=== PATIENT | male | born 2000 | race African-American/Black ===

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

== ENCOUNTER 2020-02-03 15:20 | Inpatient (IN) | payer MEDICAID, OTHER ==
[2020-02-03 15:26] VITALS: RESP 18
--- NOTE | 2020-02-03 15:40 | ED ---
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 please excuse any grammatical, word or spelling errors. This patient was cared for during a federal and state declared state of emergency secondary to Covid 19 Chief Complaint: 19-year-old male presents for psychiatric evaluation for coronary History of Present Illness: Patient is a 19-year-old male who is brought in by law enforcement. There is a court order for the patient. Patient does not know why he is here. He was unhappy of being here in emergency department. Law enforcement reports that he was kind of an cooperative. Court order was completed by patient's grandmother. She reports that patient has history of bipolar schizophrenia not taking his medications. He was admitted to [facility] approximately one month ago. Denies any suicidal or homicidal ideation. No visual auditory hallucinations. Patient has no complaints at this time. The ROS documented in this emergency department record has been reviewed and confirmed by me. Those systems with pertinent positive or negative responses have been documented in the HPI. All other systems are other negative and/or noncontributory. PHYSICAL EXAM: General Impression: Alert and oriented x3, not in acute distress HEENT: Normocephalic atraumatic, extra-ocular movements intact, pupils equal and reactive to light bilaterally, mucous membranes moist. Cardiovascular: Heart regular rate and rhythm Chest: Able to complete full sentences, no retractions, no tachypnea Abdomen: abdomen soft, non-tender, non-distended, no organomegaly Musculoskeletal: Pulses present and equal in all extremities, no peripheral edema Motor: no focal deficits noted Neurological: CN II-XII grossly intact, no focal motor or sensory deficits noted Skin: Intact with no visualized rashes Psych: Normal affect and mood ED course: 19-year-old male presents with law enforcement for court order. Vital signs upon arrival are within acceptable limits. Patient is well- appearing at bedside. Patient is cooperative with me. He is not showing any signs of psychosis. Patient medically cleared for EPS evaluation. Patient was evaluated by EPS. Patient will be admitted to inpatient psychiatry. Certification completed. - Related Data Home Medications Medication Instructions Recorded Confirmed No Known Home Medications 06/02/16 11/17/18 Allergies Allergy/AdvReac Type Severity Reaction Status Date / Time No Known Allergies Allergy Verified 02/03/20 15:26 Review of Systems ROS Statement: Those systems with pertinent positive or pertinent negative responses have been documented in the HPI. ROS Other: All systems not noted in ROS Statement are negative. Past Medical History Past Medical History: Thyroid Disorder Additional Past Medical History / Comment(s): L thyroid nodule <1 CM, ? parathyroid problem History of Any Multi-Drug Resistant Organisms: None Reported Past Surgical History: No Surgical Hx Reported Past Anesthesia/Blood Transfusion Reactions: Unable to Obtain Additional Past Anesthesia/Blood Transfusion Reaction / Comment(s): Pt has never had surgery Past Psychological History: ADD/ADHD Smoking Status: Current every day smoker Past Alcohol Use History: Occasional Past Drug Use History: Marijuana - Past Family History Mother Additional Family Medical History / Comment(s): ADHD Father Family Medical History: No Reported History Additional Family Medical History / Comment(s): Father is healthy grandfather Family Medical History: Diabetes Mellitus General Exam Limitations: no limitations Course Vital Signs 02/03/20 15:21 Temperature 98.4 F Pulse Rate 79 Respiratory 18 Rate Blood Pressure 132/72 O2 Sat by Pulse 97 Oximetry Disposition Clinical Impression: Psychosis Disposition: ADMITTED IP TO THIS HOSP Referrals: None,Stated [Primary Care Provider] - 1-2 days Decision Time: 18:59
[2020-02-03 19:07] LABS: Amphetamine Screen,Urine Not Detected (NotDetected); Barbiturate Screen,Urine Not Detected (NotDetected); Benzodiazepines Screen,Urine Not Detected (NotDetected); Cocaine Screen,Urine Not Detected (NotDetected); Methadone Screen, Urine Not Detected (NotDetected); Opiate Screen,Urine Not Detected (NotDetected); Oxycodone Screen, Urine Not Detected (NotDetected); Phencyclidine Screen,Urine Not Detected (NotDetected); Tricyclic Antidepressant,Urine Not Detected (NotDetected); Urn Cannabinoid Scrn Detected (NotDetected)
[2020-02-03] MEDS ORDERED: ACETAMINOPHEN TAB 325 MG TAB PO PRN (20:13)
[2020-02-03] MEDS ORDERED: MAG HYDROX/AL HYDROX/SIMETH 30 ML CUP PO PRN (20:13)
[2020-02-03] MEDS ORDERED: MAGNESIUM HYDROXIDE 2,400 MG/10 ML CUP PO PRN (20:13)
[2020-02-03] MEDS ORDERED: LORazepam 1 MG TAB PO PRN (20:13)
[2020-02-03] MEDS ORDERED: HALOPERIDOL LACTATE 5 MG/ML 1 ML VIAL IM PRN (20:18)
[2020-02-03] MEDS ORDERED: LORazepam 2 MG/ML INJ IM PRN (20:18)
[2020-02-03] MEDS ORDERED: haloperidoL 5 MG TAB PO PRN (20:18)
[2020-02-04] MEDS: NICOTINE 14MG/24HR PATCH TRANSDERM SCH ×2 (09:24→12:26)
[2020-02-04 13:11] LABS: Basophils % (A) 1 %; Eosinophils % (A) 0 %; HCT 46.4 % (39.0-53.0); HGB 15.4 gm/dL (13.0-17.5); Lymphocytes # (A) 1.2 k/uL (1.0-4.8); Lymphocytes % (A) 20 %; MCH 29.9 pg (25.0-35.0); MCHC 33.2 g/dL (31.0-37.0); MCV 90.1 fL (80.0-100.0); Mean Platelet Volume 7.1; Monocytes # (A) 0.3 k/uL (0-1.0); Monocytes % (A) 4 %; Neutrophils # (A) 4.4 k/uL (1.3-7.7); Neutrophils % (A) 74 %; Platelet Count 253 k/uL (150-450); RBC 5.15 m/uL (4.30-5.90); RDW 13.1 % (11.5-15.5)
[2020-02-04 13:20] LABS: ALT 16 U/L (4-49); AST 23 U/L (17-59); African American GFR (CKD) >90 (>60 ml/min/1.73 sqM); Albumin 4.4 g/dL (3.5-5.0); Alkaline Phosphatase 74 U/L (38-126); Anion Gap 3 mmol/L; Bilirubin, Delta 0.2 mg/dL (0.0-0.2); Bilirubin,Unconjugated 0.3 mg/dL (0.0-1.1); Blood Urea Nitrogen 8 mg/dL (9-20); Calcium 9.6 mg/dL (8.4-10.2); Carbon Dioxide 31 mmol/L (22-30); Chloride 104 mmol/L (98-107); Cholesterol 116 mg/dL (<200); Glucose 103 mg/dL (74-99); HDL Cholesterol 40 mg/dL (40-60); LDL Cholesterol,Calculated 61 mg/dL (0-99); Non-African American GFR(CKD) >90 (>60 ml/min/1.73 sqM); Sodium 138 mmol/L (137-145); Total Bilirubin 0.5 mg/dL (0.2-1.3); Total Protein 7.2 g/dL (6.3-8.2); Triglycerides 74 mg/dL (<150)
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
[2020-02-04] MEDS: PALIPERIDONE 3 MG TAB.ER.24 PO SCH ×2 (15:32→21:29)
[2020-02-05] MEDS: MELATONIN 5 MG TABLET PO PRN ×2 (00:02→20:34)
--- NOTE | 2020-02-05 01:04 | P.CONS ---
History of Present Illness - Reason for Consult Consult date: 02/05/20 - History of Present Illness Patient is a 19-year-old male with a PMH of bipolar disorder, tobacco abuse, marijuana abuse who was brought into the emergency room under police custody after a pickup order. The patient was admitted to the mental health unit where he was seen and evaluated on 02/03 at 10 PM. The patient reported feeling well and denied active complaints. He reported smoking a few cigarettes daily and us ing marijuana on though denied any additional drug use. He also denied alcohol he use. He denied chest pain, shortness of breath, fever, chills, cough, nausea, vomiting, abdominal pain, diarrhea. Review of Systems Pertinent positives and negatives as discussed in HPI, a complete review of systems was performed and all other systems are negative. Past Medical History Past Medical History: Thyroid Disorder Additional Past Medical History / Comment(s): L thyroid nodule <1 CM, ? parathyroid problem History of Any Multi-Drug Resistant Organisms: None Reported Past Surgical History: No Surgical Hx Reported Past Anesthesia/Blood Transfusion Reactions: No Reported Reaction Additional Past Anesthesia/Blood Transfusion Reaction / Comm: Pt has never had surgery Past Psychological History: ADD/ADHD Additional Psychological History / Comment(s): Pt resides with his grandmother. He is attending [employer]. He does not drive. Grandmother calls [employer] and arranges rides. Smoking Status: Current some day smoker Past Alcohol Use History: Occasional Additional Past Alcohol Use History / Comment(s): Pt states he smokes and drinks alcohol occasionally. Past Drug Use History: Marijuana Additional Drug Use History / Comment(s): Pt states he smokes marijuana in a bong daily - Past Family History Mother Additional Family Medical History / Comment(s): ADHD Father Family Medical History: No Reported History Additional Family Medical History / Comment(s): Father is healthy grandfather Family Medical History: Diabetes Mellitus Medications and Allergies Home Medications Medication Instructions Recorded Confirmed Type No Known Home Medications 06/02/16 02/03/20 History Allergies Allergy/AdvReac Type Severity Reaction Status Date / Time No Known Allergies Allergy Verified 02/03/20 19:13 Physical Exam Vitals: Vital Signs Temp 02/04/20 18:10 97.5 F L 02/04/20 12:00 98.2 F Intake and Output 02/04/20 02/04/20 02/05/20 14:59 22:59 06:59 Other: Weight 95.98 kg 94.6 kg General: non toxic, no distress, appears at stated age Derm: no unusual rashes/lesions no unusual ecchymoses, warm, dry Head: atraumatic, normocephalic, symmetric Eyes: EOMI, no lid lag, anicteric sclera, pupils equal round reactive to light ENT: Nose and ears atraumatic, no thrush, no pharyngeal erythema Neck: No thyromegaly, no cervical lymphadenopathy, trachea midline, supple Mouth: no lip lesion, mucus membranes moist Cardiovascular: S1S2 reg, no murmur, positive posterior tibial pulse bilateral, no edema, capillary refill less than 2 seconds Lungs: CTA bilateral, no rhonchi, no rales , no accessory muscle use Abdominal: soft, nontender to palpation, no guarding, no appreciable organomegaly, normal bowel sounds Ext: no gross muscle atrophy, muscle strength 5 out of 5 in all 4 extremities grossly, no contractures, Neuro: CN II-XI grossly intact, light touch intact all 4 extremities, finger to nose within normal limits, Psych: Alert, oriented, appropriate affect Results CBC & Chem 7: 02/04/20 12:27 02/04/20 12:27 Labs: Abnormal Lab Results - Last 24 Hours (Table) 02/04/20 Range/Units 12: Carbon Dioxide 31 H (22-30) mmol/L BUN 8 L (9-20) mg/dL Glucose 103 H (74-99) mg/dL Assessment and Plan Plan: Tobacco and marijuana abuse -Advised on the importance of cessation Bipolar disorder -As per psychiatry Thank you for allowing us to participate in the care of this patient. We will follow peripherally. Do not hesitate to contact us with questions. Someone can be reached from the [facility] hospitalist group at all hours of the day at [phone].
[2020-02-05] MEDS: NICOTINE 14MG/24HR PATCH TRANSDERM SCH (07:57)
[2020-02-05] MEDS: PALIPERIDONE 3 MG TAB.ER.24 PO SCH ×2 (07:57→20:33)
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
[2020-02-06 07:17] VITALS: BP 113/60; PULSE 69; TEMP 97.4
[2020-02-06] MEDS: NICOTINE 14MG/24HR PATCH TRANSDERM SCH (08:34)
[2020-02-06] MEDS: PALIPERIDONE 3 MG TAB.ER.24 PO SCH (08:34)
[2020-02-06] MEDS ORDERED: PALIPERIDONE IM 234 MG/1.5 ML SYG IM ONE (09:00)
--- NOTE | 2020-02-06 10:01 | P.DS ---
Providers Date of admission: 02/03/20 20:13 Expected date of discharge: 02/06/20 Attending physician: Remington Garcia MD Consults: 02/03/20 20:13 Consult Physician Routine Consulting Provider: Sena Physician Consult Reason/Comments: Medical H and P Do you want consulting provider notified?: Yes Primary care physician: Stated None - Discharge Diagnosis(es) (1) Schizoaffective disorder Current Visit: Yes Status: Acute Priority: High (2) Cannabis abuse Current Visit: Yes Status: Acute Priority: Medium (3) Nicotine dependence Current Visit: Yes Status: Acute Priority: Low Hospital Course: Admission HPI: Admission note was completed by Dr. King "the patient is a 19-year-old male who resides with his grandmother and was admitted on petition through the ED. The patient was delusional he was up all night night after night talking to himself and talking to the TV. She makes statements about that he will within the next couple of weeks. The patient was not able to provide any reliable information. Information was provided by his grandmother. He has been living with his grandmother. His grandmother completed a petition for involuntary hospitalization. The patient has had 1 prior psychiatric hospitalization at [facility]. The patient did indicate that he was prescribed Risperdal, a mood stabilizer and a sleeper. After discharge the patient did not take any medications nor go to any follow-up. He had been referred to community mental health. Grandmother indicated that while he was in the hospital he apparently received some IM medications though she did not know any more details. After the patient got out of the hospital, mostly he has been living with his grandmother though he also was visiting family from time to time down [place] according to his grandmother. The brother would note that when the patient would visit there she would be up all night smoking marijuana and drinking. He told grandmother that the family was in a hurry to get him back to [place] because they could not tolerate his behavior. Grandmother notes that he stays up all night, night after night. She will hear him laughing and talking to himself as well as talking to the television. He makes comments about killing people who are . He makes statements that he is the devil and he talks to someone who is dad saying "I will join you soon". He refused all outpatient treatment. He made comments that a friend and the friend's grandmother are out to kill him. He also told his grandmother that he wanted a pistol so that he could kill himself. Apparently mother and a sister have bipolar disorder and schizophrenia. According to grandmother essentially father and mother pretty much had abandoned him in his growing up. He has had some court orders through [employer]. He ended up in high school, going to a boy's school in [place] for 1 year because of juvenile behavioral issues. As a teenager the patient had been on Concerta and Latuda. The patient stated that recently his father called police. His father lives in [place]. Father reported him to police because apparently there is a warrant for assault charges from the May incident. The patient spent 10 days in [facility] half-way and just got released from half-way on Wednesday. Urine drug screen is positive for marijuana. The patient is admitted for further evaluation." Hospital course: Upon admission to the unit patient was initially bizarre psychotic and delusional. Patient was however admitted on a petition by his grandmother and to clinical certificates which were filed for involuntary hospitalization and treatment. Patient ended up deferring court on 02/06/2020 with his united [place] attorney and agreeing to treatment. Patient got along well with other patients on the unit and followed unit protocol. Patient was compliant with the medications and denied any side effects throughout hospital course. Patient was started on paliperidone by mouth 3 mg twice a day for psychosis. Patient was agreeable to be transitioned onto Invega Sustenna and given loading dose of 234 mg IM on 02/06/2020 and will be due for his next dose on 02/14/2020 of 156 mg and will be due for his maintenance injection of 117 mg on . Patient was also started on melatonin daily at bedtime for sleep. Patient spoke of his stressors and engaged in therapy both group and individual. Patient was also seen by medical team for history and physical exam. Throughout the course of the hospitalization patient gradually improved with regards to mood, psychosis/delusions, paranoia, sleep and became more future oriented with improved insight and judgment. On the day of discharge patient denied any suicidal or homicidal ideations intent or plan denied any auditory or visual hallucinations. Patient endorsed wanting to live for his health and family. Patient denied any paranoia and did not endorse any delusions. Patient does have a significant history of substance abuse and was counseled on abstaining from all substances including alcohol and marijuana. Patient was offered however declined inpatient substance-abuse rehab. Patient was also counseled on the medications and need for regular compliance and was encouraged to follow-up with their outpatient appointment for mental health and also for primary care. Prior to discharge a family meeting with patient's grandmother will be arranged by drug abuse social worker to answer any questions and ensure safety upon discharge. Patient will be discharged back to his grandmother's house with [facility] outpatient follow- up. Mental status exam: General Appearance: Patient appears to be well-built, stated age is alert, directable, and cooperative. Patient is in no acute distress and has improved hygiene and grooming. long dreads in his hair. Behavior: Patient is calmly seated without any agitated behavior. Speech: Patient's speech is fluent and nonpressured. Mood/Affect: Patient reports their mood is "good", affect is congruent Suicidality/Homicidality: Patient denies having any suicidal or homicidal ideation intent or plan. Perceptions: Patient denies any auditory or visual hallucinations. Though content/process: There is no evidence of any delusional thought content and thought process is linear and goal-directed. more future oriented and speaking about getting a job. Memory and concentration: AOX3, grossly intact for the purposes of this session. Can spell "WORLD" backwards correctly. Judgment and insight: improved with guarded prognosis Impression: Schizoaffective disorder r/o bipolar disorder with psychotic features versus cannabis-induced psychosis Cannabis abuse Nicotine dependence Plan: -Continue with discharge today as patient has improved and stabilized psychiatrically and is not currently an imminent threat to himself and/or others. Patient will remain at chronically elevated risk for harm to self and/or others due to his superficial insight and chronic substance abuse. -Continue medications: Continue with paliperidone 3 mg daily at bedtime for 5 more days then to be discontinued. Patient was given loading dose of 234 mg IM on 02/06/2020 and will be due for his next dose on 02/14/2020 of 156 mg and will be due for his maintenance injection of 117 mg on . Continue with melatonin daily at bedtime for insomnia. -Patient was counseled on the need for medication compliance and appropriate follow-up at mental health and also primary care for medical issues. Patient verbalized understanding and agreed. -Social work to arrange for and conduct family meeting to ensure safety upon discharge and answer any questions/concerns. Social work also to arrange for patients follow up appointments with [facility] for psychiatric care along with follow up with primary care provider. -Patient counseled on abstaining from recreational drugs and marijuana and alcohol. Was informed/educated on the adverse effects on their physical and mental health. Patient verbally agreed and understood. Patient was offered substance abuse treatment however declined at this time. -Patient was instructed to return to the hospital or seek immediate medical care if their psychiatric or medical symptoms do worsen or reoccur. Allergies Allergy/AdvReac Type Severity Reaction Status Date / Time No Known Allergies Allergy Verified 02/03/20 19:13 Laboratory Results WBC 6.0 k/uL (4.0-11.0) 02/04/20 12: RBC 5.15 m/uL (4.30-5.90) 02/04/20 12: Hgb 15.4 gm/dL (13.0-17.5) 02/04/20 12:27 Hct 46.4 % (39.0-53.0) 02/04/20 12: MCV 90.1 fL (80.0-100.0) 02/04/20 12:27 MCH 29.9 pg (25.0-35.0) 02/04/20 12: MCHC 33.2 g/dL (31.0-37.0) 02/04/20 12: RDW 13.1 % (11.5-15.5) 02/04/20 12: Plt Count 253 k/uL (150-450) 02/04/20 12: MPV 7.1 02/04/20 12: Neutrophils % 74 % 02/04/20 12: Lymphocytes % 20 % 02/04/20 12:27 Monocytes % 4 % 02/04/20 12:27 Eosinophils % 0 % 02/04/20 12:27 Basophils % 1 % 02/04/20 12: Neutrophils # 4.4 k/uL (1.3-7.7) 02/04/20 12: Lymphocytes # 1.2 k/uL (1.0-4.8) 02/04/20 12:27 Monocytes # 0.3 k/uL (0-1.0) 02/04/20 12:27 Eosinophils # 0.0 k/uL (0-0.7) 02/04/20 12:27 Basophils # 0.0 k/uL (0-0.2) 02/04/20 12:27 Sodium 138 mmol/L (137-145) 02/04/20 12:27 Potassium 5.0 mmol/L (3.5-5.1) 02/04/20 12:27 Chloride 104 mmol/L (98-107) 02/04/20 12: Carbon Dioxide 31 mmol/L (22-30) H 02/04/20 12: Anion Gap 3 mmol/L 02/04/20 12: BUN 8 mg/dL (9-20) L 02/04/20 12: Creatinine 1.10 mg/dL (0.66-1.25) 02/04/20 12:27 Est GFR (CKD-EPI)AfAm >90 (>60 ml/min/1.73 sqM) 02/04/20 12: Est GFR (CKD-EPI)NonAf >90 (>60 ml/min/1.73 sqM) 02/04/20 12: Glucose 103 mg/dL (74-99) H 02/04/20 12: Estimated Ave Glu mg/dL 97 02/04/20 12: Hemoglobin A1c 5.0 % (4.0-6.0) 02/04/20 12: Calcium 9.6 mg/dL (8.4-10.2) 02/04/20 12: Total Bilirubin 0.5 mg/dL (0.2-1.3) 02/04/20 12: Conjugated Bilirubin 0.0 mg/dL (0.0-0.3) 02/04/20 12: Unconjugated Bilirubin 0.3 mg/dL (0.0-1.1) 02/04/20 12: Delta Bilirubin 0.2 mg/dL (0.0-0.2) 02/04/20 12: AST 23 U/L (17-59) 02/04/20 12: ALT 16 U/L (4-49) 02/04/20 12:27 Alkaline Phosphatase 74 U/L (38-126) 02/04/20 12:27 Total Protein 7.2 g/dL (6.3-8.2) 02/04/20 12:27 Albumin 4.4 g/dL (3.5-5.0) 02/04/20 12:27 Triglycerides 74 mg/dL (<150) 02/04/20 12:27 Cholesterol 116 mg/dL (<200) 02/04/20 12:27 LDL Cholesterol, Calc 61 mg/dL (0-99) 02/04/20 12:27 HDL Cholesterol 40 mg/dL (40-60) 02/04/20 12:27 TSH 0.769 mIU/L (0.465-4.680) 02/04/20 12:27 Urine Opiates Screen Not Detected (NotDetected) 02/03/20 18:44 Ur Oxycodone Screen Not Detected (NotDetected) 02/03/20 18:44 Urine Methadone Screen Not Detected (NotDetected) 02/03/20 18:44 Ur Propoxyphene Screen Not Detected (NotDetected) 02/03/20 18:44 Ur Barbiturates Screen Not Detected (NotDetected) 02/03/20 18:44 U Tricyclic Antidepress Not Detected (NotDetected) 02/03/20 18:44 Ur Phencyclidine Scrn Not Detected (NotDetected) 02/03/20 18:44 Ur Amphetamines Screen Not Detected (NotDetected) 02/03/20 18:44 U Methamphetamines Scrn Not Detected (NotDetected) 02/03/20 18:44 U Benzodiazepines Scrn Not Detected (NotDetected) 02/03/20 18:44 Urine Cocaine Screen Not Detected (NotDetected) 02/03/20 18:44 U Marijuana (THC) Screen Detected (NotDetected) H 02/03/20 18:44 Coronavirus (PCR) Not Detected (Not Detectd) 02/03/20 18:25 Vital Signs Temp 97.4 F L 02/06/20 07:16 Pulse 69 02/06/20 07:16 Resp 18 02/03/20 20:20 BP 113/60 02/06/20 07:16 Pulse Ox 97 02/03/20 20:20 Patient Condition at Discharge: Stable Plan - Discharge Summary Discharge Rx Participant: No New Discharge Prescriptions: New Nicotine 14Mg/24Hr Patch [Habitrol] 1 patch TRANSDERM DAILY 14 Days patch Paliperidone [Invega] 3 mg PO HS 5 Days tab.er.24 Paliperidone IM [Invega Sustenna] 156 mg IM ONCE #1 syr Paliperidone Palmitate [Invega Sustenna] 117 mg IM ONCE #1 syr Melatonin 5 mg PO HS PRN 30 Days tablet PRN Reason: Insomnia Acetaminophen Tab [Tylenol] 650 mg PO Q4HR PRN #0 tab PRN Reason: Pain/Discomfort Discharge Medication List Acetaminophen Tab [Tylenol] 650 mg PO Q4HR PRN #0 tab 02/06/20 [Rx] Melatonin 5 mg PO HS PRN 30 Days tablet 02/06/20 [Rx] Nicotine 14Mg/24Hr Patch [Habitrol] 1 patch TRANSDERM DAILY 14 Days patch 02/06/20 [Rx] Paliperidone IM [Invega Sustenna] 156 mg IM ONCE #1 syr 02/06/20 [Rx] Paliperidone Palmitate [Invega Sustenna] 117 mg IM ONCE #1 syr 02/06/20 [Rx] Paliperidone [Invega] 3 mg PO HS 5 Days tab.er.24 02/06/20 [Rx] Follow up Appointment(s)/Referral(s): None,Stated [Primary Care Provider] - 1-2 days Activity/Diet/Wound Care/Special Instructions: Activity and diet as tolerated. Avoid the use of street drugs and alcohol. Take all medications as prescribed. When you are in need of refills on your medications please contact your medical provider and/or outpatient psychiatrist to have this done. Please go to scheduled outpatient appointment for aftercare treatment. If symptoms return or become worse, call the crisis line at and/or go to the nearest emergency room for evaluation. Discharge Disposition: HOME SELF-CARE
[2020-02-06] MEDS ORDERED: PALIPERIDONE 3 MG TAB.ER.24 PO SCH (21:00)
== END 2020-02-06 12:20 | disposition home or self-care (01) | DRG 885 ==
LOC: EC 15:20 → 3MHU 20:13
PROVIDERS: ADMIT Psychiatry & Neurology Psychiatry; ATTEND Psychiatry & Neurology Psychiatry
DX: F25.9 Schizoaffective disorder, unspecified (principal); F12.10 Cannabis abuse, uncomplicated; F17.200 Nicotine dependence, unspecified, uncomplicated; F31.9 Bipolar disorder, unspecified; Z20.828 Contact with and (suspected) exposure to other viral communicable diseases; G47.00 Insomnia, unspecified; F90.9 Attention-deficit hyperactivity disorder, unspecified type; Z81.8 Family history of other mental and behavioral disorders; Z83.3 Family history of diabetes mellitus; Z91.14 Patient's other noncompliance with medication regimen
CPT/HCPCS: 80053; 80061; 80306; 82075; 82248; 83036; 84443; 85025; 87635; 99285

== ENCOUNTER 2020-12-14 00:52 | Inpatient (IN) | payer MEDICAID, OTHER ==
--- NOTE | 2020-12-14 00:56 | ED ---
Psych HPI - General Stated Complaint: Mental Health Time Seen by Provider: 12/14/20 00:55 Source: RN notes reviewed, old records reviewed Mode of arrival: ambulatory Limitations: no limitations - History of Present Illness Initial Comments: This is a 20-year-old male to the ER for evaluation today. Presents today for evaluation regards to a Sick illness. Patient does not want really participating history taking. He has multiple bad as needed inpatient both [facility] or other hospitals. Denying drugs or alcohol use. MD Complaint: suicidal ideation, feels depressed -: unknown Associated Psychiatric Symptoms: depression, suicidal ideation, racing thoughts History of same: Yes Quality: constant, getting worse Improves With: none Worsens With: none Context: significant life stressor Associated Symptoms: denies other symptoms Treatments Prior to Arrival: placed on mental health hold If Self Harm: admits thoughts of self harm - Related Data Previous Rx's Medication Instructions Recorded Acetaminophen Tab [Tylenol] 650 mg PO Q4HR PRN #0 tab 02/06/20 Melatonin 5 mg PO HS PRN 30 Days tablet 02/06/20 Nicotine 14Mg/24Hr Patch [Habitrol] 1 patch TRANSDERM DAILY 14 Days 02/06/20 patch Paliperidone IM [Invega Sustenna] 156 mg IM ONCE #1 syr 02/06/20 Paliperidone Palmitate [Invega 117 mg IM ONCE #1 syr 02/06/20 Sustenna] Paliperidone [Invega] 3 mg PO HS 5 Days tab.er.24 02/06/20 Allergies Allergy/AdvReac Type Severity Reaction Status Date / Time No Known Allergies Allergy Verified 02/03/20 19:13 Review of Systems ROS Statement: Those systems with pertinent positive or pertinent negative responses have been documented in the HPI. ROS Other: All systems not noted in ROS Statement are negative. Past Medical History Past Medical History: Thyroid Disorder Additional Past Medical History / Comment(s): L thyroid nodule <1 CM, ? parathyroid problem History of Any Multi-Drug Resistant Organisms: None Reported Past Surgical History: No Surgical Hx Reported Past Anesthesia/Blood Transfusion Reactions: No Reported Reaction Additional Past Anesthesia/Blood Transfusion Reaction / Comment(s): Pt has never had surgery Past Psychological History: ADD/ADHD Additional Psychological History / Comment(s): Pt resides with his grandmother. He is attending [employer]. He does not drive. Grandmother calls [employer] and arranges rides. Smoking Status: Current some day smoker Past Alcohol Use History: Occasional Additional Past Alcohol Use History / Comment(s): Pt states he smokes and drinks alcohol occasionally. Past Drug Use History: Marijuana Additional Drug Use History / Comment(s): Pt states he smokes marijuana in a bong daily - Past Family History Mother Additional Family Medical History / Comment(s): ADHD Father Family Medical History: No Reported History Additional Family Medical History / Comment(s): Father is healthy grandfather Family Medical History: Diabetes Mellitus General Exam General appearance: alert, in no apparent distress Head exam: Present: atraumatic, normocephalic, normal inspection Eye exam: Present: normal appearance, PERRL, EOMI. Absent: scleral icterus, conjunctival injection, periorbital swelling ENT exam: Present: normal exam, mucous membranes moist Neck exam: Present: normal inspection. Absent: tenderness, meningismus, lymphadenopathy Respiratory exam: Present: normal lung sounds bilaterally. Absent: respiratory distress, wheezes, rales, rhonchi, stridor Cardiovascular Exam: Present: regular rate, normal rhythm, normal heart sounds. Absent: systolic murmur, diastolic murmur, rubs, gallop, clicks GI/Abdominal exam: Present: soft, normal bowel sounds. Absent: distended, tenderness, guarding, rebound, rigid Extremities exam: Present: normal inspection, full ROM, normal capillary refill. Absent: tenderness, pedal edema, joint swelling, calf tenderness Back exam: Present: normal inspection Neurological exam: Present: alert, oriented X3, CN II-XII intact Psychiatric exam: Present: normal affect, normal mood Skin exam: Present: warm, dry, intact, normal color. Absent: rash Course Vital Signs 12/14/20 01:04 Temperature 99.5 F Pulse Rate 109 H Respiratory 16 Rate Blood Pressure 117/67 O2 Sat by Pulse 96 Oximetry - Reevaluation(s) Reevaluation #1: 12/14/20 02:27 Medical record is reviewed 12/14/20 02:27 Medical clear for psychiatric evaluation Medical Decision Making - Medical Decision Making 20 male seen and evaluated by psychiatry, patient be admitted for psychiatric evaluation and treatment Disposition Clinical Impression: Psychosis, Schizoaffective disorder Disposition: TRANSFER TO PSYCH HOSP/UNIT Condition: Fair Referrals: Sydni Schuler MD [Primary Care Provider] - 1-2 days
[2020-12-14] MEDS ORDERED: ACETAMINOPHEN TAB 325 MG TAB PO PRN (04:46)
[2020-12-14] MEDS ORDERED: MAG HYDROX/AL HYDROX/SIMETH 30 ML CUP PO PRN (08:00)
[2020-12-14] MEDS ORDERED: MAGNESIUM HYDROXIDE 2,400 MG/10 ML CUP PO PRN (09:00)
[2020-12-14] MEDS: NICOTINE 14MG/24HR PATCH TRANSDERM SCH (10:27)
[2020-12-14] MEDS ORDERED: PALIPERIDONE IM 234 MG/1.5 ML SYG IM STA (14:45)
--- NOTE | 2020-12-14 18:20 | HP ---
DATE OF SERVICE: 12/14/2020 HISTORY AND PHYSICAL IDENTIFYING DATA: The patient is a 20-year-old male. He lives with his grandmother. He presented to the ED for evaluation. CHIEF COMPLAINT: The patient was delusional and disorganized in his thoughts. HISTORY OF PRESENTING ILLNESS: The patient was the primary source of information. He was not able to provide any reliable information during the interview. It is noteworthy that I had previously seen the patient and did an admission H and P on 02/04/2020. At that time he presented with delusions, had been living with his grandmother, as he says he is now. He apparently was getting into agitation. He was declining to go to [facility]. He was quite disorganized in his thoughts. He had been staying up at night smoking marijuana and drinking. Apparently he would be found to be laughing to himself, talking to himself and talking to the television. He was making statements about killing people who were . He talked about telling his grandmother he wanted a pistol so that he could kill himself. Today he made some vague comment about thinking that he would kill people, and when I asked him specifics about that, he said he thinks that he would kill the whole town. He did not say what town that was. He then made comments about how no one would understand what he has been going through. He was not able to elaborate. He was very disorganized in his thoughts and was not able to provide any information about his current circumstances. He did make comments that he had been going to [facility] and that he was on Invega Sustenna. He believed his last dose of Invega Sustenna was in August. He was willing to go back on Invega Sustenna. He is admitted for further evaluation. SUBSTANCE USE HISTORY: Uncertain. PAST MEDICAL HISTORY: No reported general health concerns. FAMILY AND SOCIAL HISTORY: I have no current information available. I would refer the reader to my admission note of 02/04/2020 for details. MENTAL STATUS EXAM: The patient sat in a slumped posture. Mostly he looked down and did not establish any eye contact. He made various odd statements. Sometimes he would talk to himself in a very soft voice. It was difficult to follow his train of thought. Some of the time he would laugh and start talking in a somewhat rapid though mumbled way, so it was hard to know what he was saying. He made various disconnected statements. His affect was mildly intense. He was cooperative. His mood fluctuated, though he did not appear to be significantly down or depressed. He did seem to have a worried manner and was somewhat distressed. He was showing disorganized thoughts and delusional thinking. He made some indications that he has internal stimuli and hears voices. He did make a vague statement about "killing everyone in town," though not making any direct statements or identifying any particular person as a potential target. He also did not indicate that he had any means to do that. He voiced no thoughts of harm to self. He was quite disorganized in his thoughts and not able to respond to any formal cognitive questions. PHYSICAL EXAMINATION: As per medical consultation. ASSESSMENT: The patient is diagnosed with schizophrenia. He had been maintained on Invega Sustenna. We do not have any information about current circumstances or issues relating to his ongoing treatment with [facility]. Strengths include kalispel intelligence. Weakness includes regression to psychosis. DIAGNOSIS: Schizophrenia with acute exacerbation. RECOMMENDATIONS: Patient will be admitted for comprehensive medical, psychiatric and psychosocial evaluation. Will engage the patient in individual and group therapeutic activities. I will initiate Invega Sustenna. He will get a 234 mg dose today. I will hold him off oral medications so that we can keep his treatment simplified. We will get input from [facility] and work out treatment and discharge planning. CHANDU / JOLENE: [id number] / MTDD
[2020-12-15] MEDS: NICOTINE 14MG/24HR PATCH TRANSDERM SCH (08:50)
--- NOTE | 2020-12-15 12:38 | PN ---
PROGRESS NOTE DATE OF SERVICE: 12/15/2020. CHIEF COMPLAINT: The patient was delusional and disorganized in his thoughts. INTERVAL HISTORY: Patient has been doing fair. He had a quiet day yesterday. He spends a fair amount of time in his room. He will come out in the day areas some. He wanders about. He does not interact too much with others. He will interact some with staff. He generally was calm and appropriate. He accepted receiving Invega Sustenna 234 mg IM dose without difficulty. Given the degree of disorganized thinking he had yesterday, I kept his medications limited to that. He slept well last night today he again has mostly been in his room. He declined attending groups today. He voiced no specific complaints or concerns. He seems to be an a little quieter mood today and perhaps a little more organized in his thoughts than how he presented yesterday. He said that he did not have any issues with receiving Invega Sustenna. MENTAL STATUS EXAM: Patient gave fair eye contact. Psychomotor activity was somewhat slowed. He responded to a few questions appropriately. He made some vague comments, it was hard to follow some of his thinking. He had a blunted affect. His mood was quiet. He did not appear to be significantly distressed. He continues to show response to internal stimuli. He voiced no thoughts of harm. He was oriented to his circumstances and surroundings. ASSESSMENT: I will continue the current diagnosis. I will start the patient on Invega 6 mg daily in addition to the Invega Sustenna that he received yesterday. We do need to coordinate with [facility] as he had been followed up there, though apparently had not been sticking with his treatment. We will focus on stabilization and discharge planning. MMODL / IJN: [id number] /
[2020-12-15] MEDS: PALIPERIDONE 6 MG TAB.ER.24 PO SCH (13:18)
[2020-12-16 07:29] LABS: Basophils % (A) 1 %; Eosinophils # (A) 0.1 k/uL (0-0.7); Eosinophils % (A) 1 %; HCT 45.3 % (39.0-53.0); Lymphocytes # (A) 1.5 k/uL (1.0-4.8); Lymphocytes % (A) 29 %; MCH 29.4 pg (25.0-35.0); MCV 88.9 fL (80.0-100.0); Mean Platelet Volume 7.8; Monocytes # (A) 0.3 k/uL (0-1.0); Monocytes % (A) 6 %; Neutrophils # (A) 3.1 k/uL (1.3-7.7); Neutrophils % (A) 62 %; Platelet Count 254 k/uL (150-450); RDW 13.5 % (11.5-15.5); WBC 5.1 k/uL (4.0-11.0)
[2020-12-16] MEDS: PALIPERIDONE 6 MG TAB.ER.24 PO SCH (08:04)
[2020-12-16] MEDS: NICOTINE 14MG/24HR PATCH TRANSDERM SCH (08:04)
[2020-12-16 08:05] LABS: ALT 13 U/L (4-49); AST 26 U/L (17-59); African American GFR (CKD) >90 (>60 ml/min/1.73 sqM); Alkaline Phosphatase 69 U/L (38-126); Anion Gap 9 mmol/L; Blood Urea Nitrogen 5 mg/dL (9-20); Calcium 9.5 mg/dL (8.4-10.2); Carbon Dioxide 29 mmol/L (22-30); Chloride 99 mmol/L (98-107); Glucose 86 mg/dL (74-99); Non-African American GFR(CKD) >90 (>60 ml/min/1.73 sqM); Potassium 3.8 mmol/L (3.5-5.1); Sodium 137 mmol/L (137-145); Total Bilirubin 0.6 mg/dL (0.2-1.3); Total Protein 6.9 g/dL (6.3-8.2)
--- NOTE | 2020-12-16 10:34 | P.PN ---
Progress Note - Text Progress Note Date: 12/16/20 Interval History: Patient was seen lying in his bed today and was directable and agreeable to sp charisma with global technical writer in the office. Patient was appearing to be responding to internal stimuli and laughing to himself when he was initially approached by global technical writer. Patient had thought blocking and was hesitant in his speech. He continued to claim that he wants to get out of [place] and go to [place] however did not stay why. He claims that he does not want to follow-up with [facility] and claims that he is okay taking the paliperidone by mouth only and does not want long-acting injection. He made bizarre statements at times and appeared to be overwhelmed and hesitant. He also claimed that he is feeling anxious. He had a difficult time expressing his thoughts. He states that he has been sleeping well however according to nursing notes patient has not been sleeping at all however he has been taking his paliperidone. He claims that he lives with his grandmother however did not state specifically why he came to the hospital. At this time patient denies any suicidal or homical ideations, intent or plan. Patient denies any auditory, visual hallucinations. Patient denies any side effects from the medications and has been compliant with meds. Mental Status Exam: General Appearance: Patient appears to be well built, stated age is alert, directable, and attempts to be cooperative. Long dreadlocks. Behavior: Patient is calmly seated without any agitated behavior. Bizarre at times. Hesitant. Responding to internal stimuli. Speech: Patient's speech is fluent and nonpressured. Mood/Affect: Mood is improving mildly and anxious, affect is congruent and constricted. Suicidality/Homicidality: Patient denies having any suicidal or homicidal ideation intent or plan. Perceptions: Patient denies any visual hallucinations and denies any auditory hallucinations Though content/process: Poverty of content. Thought blocking. Loose associations. Memory and concentration: AOX3, grossly intact for the purposes of this session Judgment and insight: Chronically poor, Improving mildly Assessment Schizophrenia chronic with acute exacerbation Nicotine dependence Plan: -Patient continues to meet criteria for inpatient psychiatric admission for symptom stabilization and safety. Patient has signed adult voluntary form and medication consent and was placed in patient's chart. -Medications: Paliperidone 9 mg daily at bedtime for psychosis. We will attempt again to encourage patient to be transitioned onto long-acting injection. Added Benadryl 25 mg daily at bedtime when necessary for insomnia. -When necessary Ativan and Haldol for agitation/aggression. -NRT - nicotine patch -SW on board for discharge planning. Encouraged the patient to participate in milieu.
--- NOTE | 2020-12-16 12:46 | P.CONS ---
History of Present Illness - Reason for Consult Medical clearance - History of Present Illness Patient is 20-year-old male admitted for agitation and acute psychosis patient is pleasant when I valid the patient patient is clinically doing well doing much better today. Patient doesn't smoke cigarettes which he started about any ago he is willing to quit occasional alcohol use denied any other drug abuse except for marijuana use. Denied any complaints of chest pain nausea vomiting abdominal pain fever chills. REVIEW OF SYSTEMS: CONSTITUTIONAL: No fever, no malaise, no fatigue. HEENT: No recent visual problems or hearing problems. Denied any sore throat. CARDIOVASCULAR: No chest pain, orthopnea, PND, no palpitations, no syncope. PULMONARY: No shortness of breath, no cough, no hemoptysis. GASTROINTESTINAL: No diarrhea, no nausea, no vomiting, no abdominal pain. NEUROLOGICAL: No headaches, no weakness, no numbness. HEMATOLOGICAL: Denies any bleeding or petechiae. GENITOURINARY: Denies any burning micturition, frequency, or urgency. MUSCULOSKELETAL/RHEUMATOLOGICAL: Denies any joint pain, swelling, or any muscle pain. ENDOCRINE: Denies any polyuria or polydipsia. The rest of the 14-point review of systems is negative. PHYSICAL EXAMINATION: GENERAL: The patient is alert and oriented x3, not in any acute distress. Well developed, well nourished. HEENT: Pupils are round and equally reacting to light. EOMI. No scleral icterus. No conjunctival pallor. Normocephalic, atraumatic. No pharyngeal erythema. No thyromegaly. CARDIOVASCULAR: S1 and S2 present. No murmurs, rubs, or gallops. PULMONARY: Chest is clear to auscultation, no wheezing or crackles. ABDOMEN: Soft, nontender, nondistended, normoactive bowel sounds. No palpable organomegaly. MUSCULOSKELETAL: No joint swelling or deformity. EXTREMITIES: No cyanosis, clubbing, or pedal edema. NEUROLOGICAL: Gross neurological examination did not reveal any focal deficits. SKIN: No rashes. Assessment and plan Schizophrenia with acute psychosis: Management as per primary service -Nicotine dependence and marijuana use: Counseling was provided Past Medical History Past Medical History: Thyroid Disorder Additional Past Medical History / Comment(s): L thyroid nodule <1 CM, ? parathyroid problem History of Any Multi-Drug Resistant Organisms: None Reported Past Surgical History: No Surgical Hx Reported Past Anesthesia/Blood Transfusion Reactions: No Reported Reaction Additional Past Anesthesia/Blood Transfusion Reaction / Comm: Pt has never had surgery Past Psychological History: ADD/ADHD Additional Psychological History / Comment(s): Pt resides with his grandmother. He is attending [employer]. He does not drive. Grandmother calls [employer] and arranges rides. Smoking Status: Never smoker Past Alcohol Use History: Occasional Additional Past Alcohol Use History / Comment(s): Pt states he smokes and drinks alcohol occasionally. Past Drug Use History: Marijuana Additional Drug Use History / Comment(s): Pt states he smokes marijuana in a bong daily - Past Family History Mother Additional Family Medical History / Comment(s): ADHD Father Family Medical History: No Reported History Additional Family Medical History / Comment(s): Father is healthy grandfather Family Medical History: Diabetes Mellitus Medications and Allergies Home Medications Medication Instructions Recorded Confirmed Type Acetaminophen Tab [Tylenol] 650 mg PO Q4HR PRN #0 tab 02/06/20 Rx Melatonin 5 mg PO HS PRN 30 Days tablet 02/06/20 Rx Nicotine 14Mg/24Hr Patch [Habitrol] 1 patch TRANSDERM DAILY 14 Days 02/06/20 Rx patch Paliperidone IM [Invega Sustenna] 156 mg IM ONCE #1 syr 02/06/20 Rx Paliperidone Palmitate [Invega 117 mg IM ONCE #1 syr 02/06/20 Rx Sustenna] Paliperidone [Invega] 3 mg PO HS 5 Days tab.er.24 02/06/20 Rx Allergies Allergy/AdvReac Type Severity Reaction Status Date / Time No Known Allergies Allergy Verified 02/03/20 19:13 Physical Exam Vitals: Vital Signs Temp Pulse Resp BP 12/16/20 06:39 98.2 F 83 18 120/57 Intake and Output 12/15/20 12/16/20 12/16/20 22:59 06:59 14:59 Other: Weight 100.7 kg Results CBC & Chem 7: 12/16/20 07:11 12/16/20 07:11 Labs: Abnormal Lab Results - Last 24 Hours (Table) 12/16/20 Range/Units 07:11 BUN 5 L (9-20) mg/dL
[2020-12-16 15:54] LABS: Chol/HDL Ratio 5.22 Ratio; LDL Cholesterol,Calculated 102.8 mg/dL (0.0-131.0); VLDL Calculation 11.18 mg/dL (5.00-40.00)
[2020-12-16] MEDS: PALIPERIDONE 3 MG TAB.ER.24 PO SCH (20:21)
[2020-12-16] MEDS: diphenhydrAMINE 25 MG CAP PO PRN (20:22)
[2020-12-17] MEDS: NICOTINE 14MG/24HR PATCH TRANSDERM SCH (08:07)
[2020-12-17] MEDS: DIVALPROEX ER 500 MG TAB.ER.24H PO SCH (10:38)
--- NOTE | 2020-12-17 10:40 | P.PN ---
Progress Note - Text Progress Note Date: 12/17/20 Interval History: Patient was seen wandering the hallways today and was directable and agreeable to speak with conventional mortgage underwriter in the office. Patient did not appear to be responding to internal stimuli. He was calmer and more cooperative with conventional mortgage underwriter during conversation. He was mildly difficult to redirect during conversation as he was tangential/circumstantial. He also had several ideas and was fairly distractible. He spoke about [place] and a negative tone and claims that there is a lot of "fake people" in the town and he also spoke about people giving little girls opioids and lying to them. She continues to state that he feels overwhelmed and has racing thoughts. He was agreeable to try Depakote today. He states that he is waiting for the shower. He claims that he has not been going to groups. He states that he is able to sleep better last night with the Benadryl. At this time patient denies any suicidal or homical ideations, intent or plan. Patient denies any auditory, visual hallucinations. Patient denies any side effects from the medications and has been compliant with meds. Mental Status Exam: General Appearance: Patient appears to be well built, stated age is alert, directable, and attempts to be cooperative. Long dreadlocks. Behavior: Patient is calmly seated without any agitated behavior. Bizarre at times, improving. Not Responding to internal stimuli. Speech: Patient's speech is fluent and nonpressured. Mood/Affect: Mood is improving mildly, affect is congruent Suicidality/Homicidality: Patient denies having any suicidal or homicidal ideation intent or plan. Perceptions: Patient denies any visual hallucinations and denies any auditory hallucinations Though content/process: Rambles at times. Tangential/circumstantial. Racing thoughts/flight of ideas. Memory and concentration: AOX3, grossly intact for the purposes of this session Judgment and insight: Chronically poor, Improving mildly Assessment Schizophrenia chronic with acute exacerbation Nicotine dependence Plan: -Patient continues to meet criteria for inpatient psychiatric admission for symptom stabilization and safety. Patient has signed adult voluntary form and medication consent and was placed in patient's chart. -Medications: Paliperidone 9 mg daily at bedtime for psychosis. PAtient received Invega Sustenna 234 mg IM on 12/14 and will be due for his next dose of 156 mg IM in 2-3 days. Benadryl 25 mg daily at bedtime when necessary for insomnia. added depakote ER 500mg daily for mood stabilization. -When necessary Ativan and Haldol for agitation/aggression. -NRT - nicotine patch -SW on board for discharge planning. Encouraged the patient to participate in milieu. likely discharge in 2-3 days back home.
[2020-12-17] MEDS: LORazepam 1 MG TAB PO PRN (20:11)
[2020-12-17] MEDS: diphenhydrAMINE 25 MG CAP PO PRN (20:11)
[2020-12-17] MEDS: PALIPERIDONE 3 MG TAB.ER.24 PO SCH (20:11)
[2020-12-18] MEDS: NICOTINE 14MG/24HR PATCH TRANSDERM SCH (07:49)
[2020-12-18] MEDS: DIVALPROEX ER 500 MG TAB.ER.24H PO SCH (08:46)
--- NOTE | 2020-12-18 10:01 | P.PN ---
Progress Note - Text Progress Note Date: 12/18/20 Interval History: Patient was seen wandering the hallways today and was directable and agreeable to speak with advertising writer in the office. He appears to have improvement in his hygiene and grooming. He also appears to have improvement in his flight of ideas and racing thoughts. Patient did not appear to be responding to internal stimuli today. He was calmer and more cooperative with advertising writer during conversation. He is more goal oriented. He continues to speak negativeley of [place] and states that he wants to work this year and leave the city and stay with his sister. He claims that he has not been going to groups. He states that he is able to sleep better last night with the Benadryl. At this time patient denies any suicidal or homical ideations, intent or plan. Patient denies any auditory, visual hallucinations. Patient denies any side effects from the medications and has been compliant with meds. Mental Status Exam: General Appearance: Patient appears to be well built, stated age is alert, directable, and attempts to be cooperative. Long dreadlocks. Behavior: Patient is calmly seated without any agitated behavior. Bizarre at times, improving. Not Responding to internal stimuli. Speech: Patient's speech is fluent and nonpressured. Mood/Affect: Mood is improving mildly, affect is congruent Suicidality/Homicidality: Patient denies having any suicidal or homicidal ideation intent or plan. Perceptions: Patient denies any visual hallucinations and denies any auditory hallucinations Though content/process: Rambles at times. more goal oriented. less racing thoughts/flight of ideas today Memory and concentration: AOX3, grossly intact for the purposes of this session Judgment and insight: Chronically poor, Improving mildly Assessment Schizophrenia chronic with acute exacerbation Nicotine dependence Plan: -Patient continues to meet criteria for inpatient psychiatric admission for symptom stabilization and safety. Patient has signed adult voluntary form and medication consent and was placed in patient's chart. -Medications: Paliperidone 9 mg daily at bedtime for psychosis. Patient received Invega Sustenna 234 mg IM on 12/14 and will be due for his next dose of 156 mg IM tomorrow. Benadryl 25 mg daily at bedtime when necessary for insomnia. depakote ER 500mg daily for mood stabilization. -When necessary Ativan and Haldol for agitation/aggression. -NRT - nicotine patch -SW on board for discharge planning. Encouraged the patient to participate in milieu. likely discharge wednesday after he receives his second shot.
[2020-12-18] MEDS ORDERED: PALIPERIDONE 6 MG TAB.ER.24 PO SCH (21:00)
[2020-12-18] MEDS: LORazepam 1 MG TAB PO PRN (21:06)
[2020-12-18] MEDS: diphenhydrAMINE 25 MG CAP PO PRN (21:06)
[2020-12-19 07:07] VITALS: RESP 16; TEMP 97.7
[2020-12-19] MEDS: DIVALPROEX ER 500 MG TAB.ER.24H PO SCH (08:53)
[2020-12-19] MEDS: NICOTINE 14MG/24HR PATCH TRANSDERM SCH (08:56)
--- NOTE | 2020-12-19 10:34 | P.PN ---
Progress Note - Text Progress Note Date: 12/19/20 Interval History: Patient was seen lying in his bed today and was directable and agreeable to sp carriek with investment underwriter in the office. He appears to have improvement in his hygiene and grooming. He was not responding to internal stimuli today. He was fairly directable and answer questions appropriately during the interview. He states that he is doing well today. He claims that he is feeling tired this morning as he took the medication last night. He states that he slept throughout the night. He was not endorsing any delusions today and appeared to have a goal oriented thought process. He was agreeable to take the Invega Sustenna second dose today. He was calmer and more cooperative with investment underwriter during conversation. He claims that yesterday he went to several groups however was vague about what he learned. At this time patient denies any suicidal or homical ideations, intent or plan. Patient denies any auditory, visual hallucinations. Patient denies any side effects from the medications and has been compliant with meds. Mental Status Exam: General Appearance: Patient appears to be well built, stated age is alert, directable, and attempts to be cooperative. Long dreadlocks. Behavior: Patient is calmly seated without any agitated behavior. Not Responding to internal stimuli. Speech: Patient's speech is fluent and nonpressured. Mood/Affect: Mood is improving mildly, affect is congruent Suicidality/Homicidality: Patient denies having any suicidal or homicidal ideation intent or plan. Perceptions: Patient denies any visual hallucinations and denies any auditory hallucinations Though content/process: Rambles at times. more goal oriented. Memory and concentration: AOX3, grossly intact for the purposes of this session Judgment and insight: Chronically poor, Improving mildly Assessment Schizophrenia chronic with acute exacerbation Nicotine dependence Plan: -Patient continues to meet criteria for inpatient psychiatric admission for symptom stabilization and safety. Patient has signed adult voluntary form and medication consent and was placed in patient's chart. -Medications: decreased Paliperidone 3 mg daily at bedtime for psychosis. Patient received Invega Sustenna 234 mg IM on 12/14 and will be due for his next dose of 156 mg IM today. Benadryl 25 mg daily at bedtime when necessary for insomnia. switched depakote ER 500mg qhs for mood stabilization. -When necessary Ativan and Haldol for agitation/aggression. -NRT - nicotine patch -SW on board for discharge planning. Encouraged the patient to participate in milieu. likely discharge wednesday after he receives his second shot today.
[2020-12-19] MEDS ORDERED: PALIPERIDONE IM 156 MG/ML SYG IM ONE (12:00)
[2020-12-19] MEDS ORDERED: PALIPERIDONE 3 MG TAB.ER.24 PO SCH (21:00)
[2020-12-19] MEDS ORDERED: DIVALPROEX ER 500 MG TAB.ER.24H PO SCH (21:00)
[2020-12-19] MEDS: diphenhydrAMINE 25 MG CAP PO PRN (21:47)
[2020-12-20 06:33] VITALS: BP 112/60; PULSE 75
[2020-12-20] MEDS: NICOTINE 14MG/24HR PATCH TRANSDERM SCH (08:06)
--- NOTE | 2020-12-20 10:13 | P.DS ---
Providers Date of admission: 12/14/20 04:37 Expected date of discharge: 12/20/20 Attending physician: Remington Garcia MD Consults: 12/14/20 04:46 Consult Physician Routine Consulting Provider: Kenya Goldman Consult Reason/Comments: h and p Do you want consulting provider notified?: Yes Primary care physician: Sydni Schuler - Discharge Diagnosis(es) (1) Schizophrenia, chronic with acute exacerbation Current Visit: Yes Status: Acute Priority: High (2) Nicotine dependence Current Visit: Yes Status: Acute Priority: Low Hospital Course: Admission HPI: Admission note was completed by Dr. King "the patient is a 20-year-old male. He lives with his grandmother. He presented to the ED for evaluation. The patient was delusional and disorganized in his thoughts. The patient was a primary source of information. He is not able to provide any reliable information during the interview. It is noteworthy that I had previously seen the patient and did an admission H&P on 02/04/2020. At that time he presented with delusions, had been living with his grandmother, as he says he is now. He apparently was getting into agitation. He was declining to go to [facility]. He was q uite disorganized in his thoughts. He had been staying up at night smoking marijuana and drinking. Apparently he would be found to be laughing to himself talking to himself and talking the television. He was making statements about killing people who are . He talked about telling his grandmother he wanted a pistol so that he could kill himself. Today he made some vague comment about thinking that he would kill the whole town. She did not say what town that was. He then made comments about how no one would understand what he has been going through. He has not been able to elaborate. He was very disorganized in his thoughts and was not able to provide any information about his current circumstances. He did make comments that he had been going to [facility] and that he was on Invega Sustenna. He believed his last dose of Invega Sustenna was in August. He was willing to go back on Invega Sustenna. He is admitted for further evaluation." Hospital course: Upon admission to the unit patient was directable and agreeable to commence treatment and signed adult voluntary form . Patient got along well with other patients on the unit and followed unit protocol. Patient was compliant with the medications and denied any side effects throughout hospital course. Patient was started on paliperidone PLL and titrate up the dose of 9 mg daily at bedtime for psychosis then was gradually tapered off as patient was transferred on to [facility] to insure compliance. Patient received 234 mg IM dose on 12/14 and received a second dose of 156 mg IM on 12/19/2020. He will be due for his next monthly IM dose of 156 mg on 01/09 and every monthly thereafter. Benadryl 25 mg daily at bedtime when necessary for insomnia. Depakote ER 500 mg daily at bedtime for mood stabilization. Patient spoke of his stressors and engaged in therapy both group and individual. Patient was also seen by medical team for history and physical exam. Throughout the course of the hospitalization patient gradually improved with regards to psychosis, behaviors, sleep and returned back to their baseline level of functioning. On the day of discharge patient denied any suicidal or homicidal ideations intent or plan denied any auditory or visual hallucinations. Patient endorsed wanting to live for his future and his job. The patient denied any access to guns or weapons. Patient denied any paranoia a nd did not endorse any delusions. Patient does have a significant history of substance abuse and was counseled on abstaining from all substances including alcohol and marijuana. Patient elected to do outpatient substance use treatment program through [facility]. Patient was also counseled on the medications and need for regular compliance and was encouraged to follow-up with their outpatient appointment for mental health and also for primary care. Prior to discharge a family meeting will be arranged by long term care social worker to answer any questions and ensure safety upon discharge. Mental status exam: General Appearance: Patient appears to be well built, has dreadlocks, stated age is alert, pleasant, and cooperative. Patient is in no acute distress and has improved hygiene and grooming Behavior: Patient is calmly seated without any agitated behavior. Speech: Patient's speech is fluent and nonpressured. Mood/Affect: Patient reports their mood is "good", affect is congruent and euthymic. Suicidality/Homicidality: Patient denies having any suicidal or homicidal ideation intent or plan. Perceptions: Patient denies any auditory or visual hallucinations. Though content/process: There is no evidence of any delusional thought content and thought process is linear and goal-directed. Memory and concentration: AOX3, grossly intact for the purposes of this session. Can spell "WORLD" backwards correctly. Judgment and insight: chronically poor, however has improved with guarded prognosis Impression: Schizophrenia chronic with acute exacerbation Nicotine dependence Plan: -Continue with discharge today as patient has improved and stabilized psychiatrically and is not currently an imminent threat to himself and/or others. Patient will remain at chronically elevated risk for harm to self and/or others due to his impulsivity and chronically poor insight and judgment. -Continue medications: Paliperidone by mouth discontinued. Patient received 234 mg IM dose on 12/14 and received a second dose of 156 mg IM on 12/19/2020. He will be due for his next monthly IM dose of 156 mg on 01/09 and every monthly thereafter. Benadryl 25 mg daily at bedtime when necessary for insomnia and Depakote ER 500 mg daily at bedtime for mood stabilization. -Patient was counseled on the need for medication compliance and appropriate follow-up at mental health and also primary care for medical issues. Patient verbalized understanding and agreed. -Social work to arrange for and conduct family meeting to ensure safety upon discharge and answer any questions/concerns. Social work also to arrange for patients follow up appointments with [facility] for psychiatric care along with follow up with primary care provider. -Patient counseled on abstaining from recreational drugs and marijuana and alcohol. Was informed/educated on the adverse effects on their physical and mental health. Patient verbally agreed and understood. -Patient was instructed to return to the hospital or seek immediate medical care if their psychiatric or medical symptoms do worsen or reoccur. Allergies Allergy/AdvReac Type Severity Reaction Status Date / Time No Known Allergies Allergy Verified 02/03/20 19:13 Laboratory Results WBC 5.1 k/uL (4.0-11.0) 12/16/20 07:11 RBC 5.10 m/uL (4.30-5.90) 12/16/20 07:11 Hgb 15.0 gm/dL (13.0-17.5) 12/16/20 07:11 Hct 45.3 % (39.0-53.0) 12/16/20 07:11 MCV 88.9 fL (80.0-100.0) 12/16/20 07:11 MCH 29.4 pg (25.0-35.0) 12/16/20 07:11 MCHC 33.0 g/dL (31.0-37.0) 12/16/20 07:11 RDW 13.5 % (11.5-15.5) 12/16/20 07:11 Plt Count 254 k/uL (150-450) 12/16/20 07:11 MPV 7.8 12/16/20 07:11 Neutrophils % 62 % 12/16/20 07:11 Lymphocytes % 29 % 12/16/20 07:11 Monocytes % 6 % 12/16/20 07:11 Eosinophils % 1 % 12/16/20 07:11 Basophils % 1 % 12/16/20 07:11 Neutrophils # 3.1 k/uL (1.3-7.7) 12/16/20 07:11 Lymphocytes # 1.5 k/uL (1.0-4.8) 12/16/20 07:11 Monocytes # 0.3 k/uL (0-1.0) 12/16/20 07:11 Eosinophils # 0.1 k/uL (0-0.7) 12/16/20 07:11 Basophils # 0.0 k/uL (0-0.2) 12/16/20 07:11 Sodium 137 mmol/L (137-145) 12/16/20 07:11 Potassium 3.8 mmol/L (3.5-5.1) 12/16/20 07:11 Chloride 99 mmol/L (98-107) 12/16/20 07:11 Carbon Dioxide 29 mmol/L (22-30) 12/16/20 07:11 Anion Gap 9 mmol/L 12/16/20 07:11 BUN 5 mg/dL (9-20) L 12/16/20 07:11 Creatinine 0.99 mg/dL (0.66-1.25) 12/16/20 07:11 Est GFR (CKD-EPI)AfAm >90 (>60 ml/min/1.73 sqM) 12/16/20 07:11 Est GFR (CKD-EPI)NonAf >90 (>60 ml/min/1.73 sqM) 12/16/20 07:11 Glucose 86 mg/dL (74-99) 12/16/20 07:[address] Glu mg/dL 94 12/16/20 07:11 Hemoglobin A1c 4.9 % (4.0-6.0) 12/16/20 07:11 Calcium 9.5 mg/dL (8.4-10.2) 12/16/20 07:11 Total Bilirubin 0.6 mg/dL (0.2-1.3) 12/16/20 07:11 AST 26 U/L (17-59) 12/16/20 07:11 ALT 13 U/L (4-49) 12/16/20 07:11 Alkaline Phosphatase 69 U/L (38-126) 12/16/20 07:11 Total Protein 6.9 g/dL (6.3-8.2) 12/16/20 07:11 Albumin 4.0 g/dL (3.5-5.0) 12/16/20 07:11 Triglycerides 55.90 mg/dL (0.00-149.00) 12/16/20 07:11 Cholesterol 141.00 mg/dL (0.00-200.00) 12/16/20 07:11 LDL Cholesterol, Calc 102.8 mg/dL (0.0-131.0) 12/16/20 07:11 VLDL Cholesterol, Calc 11.18 mg/dL (5.00-40.00) 12/16/20 07:11 HDL Cholesterol 27.00 mg/dL (40.00-60.00) L 12/16/20 07:11 Cholesterol/HDL Ratio 5.22 Ratio 12/16/20 07:11 TSH 1.250 mIU/L (0.465-4.680) 12/16/20 07:11 Coronavirus (PCR) Not Detected (Not Detectd) 12/14/20 04:30 Vital Signs Temp 97.7 F 12/20/20 06:33 Pulse 75 12/20/20 06:33 Resp 16 12/20/20 06:33 BP 112/60 12/20/20 06:33 Pulse Ox 98 12/20/20 06:33 Patient Condition at Discharge: Stable Plan - Discharge Summary Discharge Rx Participant: No New Discharge Prescriptions: New diphenhydrAMINE [Benadryl] 25 mg PO HS PRN 30 Days cap PRN Reason: Insomnia Acetaminophen Tab [Tylenol] 650 mg PO Q4HR PRN tab PRN Reason: Pain/Discomfort Divalproex ER [Depakote ER] 500 mg PO HS 30 Days tab Nicotine 14Mg/24Hr Patch [Habitrol] 1 patch TRANSDERM DAILY 14 Days patch Changed Paliperidone IM [Invega Sustenna] 156 mg IM QMONTHLY #1 ml Discontinued Nicotine 14Mg/24Hr Patch [Habitrol] 1 patch TRANSDERM DAILY 14 Days patch Paliperidone [Invega] 3 mg PO HS 5 Days tab.er.24 Paliperidone Palmitate [Invega Sustenna] 117 mg IM ONCE #1 syr Melatonin 5 mg PO HS PRN 30 Days tablet PRN Reason: Insomnia Acetaminophen Tab [Tylenol] 650 mg PO Q4HR PRN #0 tab PRN Reason: Pain/Discomfort Discharge Medication List Acetaminophen Tab [Tylenol] 650 mg PO Q4HR PRN tab 12/20/20 [Rx] Divalproex ER [Depakote ER] 500 mg PO HS 30 Days tab 12/20/20 [Rx] Nicotine 14Mg/24Hr Patch [Habitrol] 1 patch TRANSDERM DAILY 14 Days patch 12/20/20 [Rx] Paliperidone IM [Invega Sustenna] 156 mg IM QMONTHLY #1 ml 12/20/20 [Rx] diphenhydrAMINE [Benadryl] 25 mg PO HS PRN 30 Days cap 12/20/20 [Rx] Follow up Appointment(s)/Referral(s): Sydni Schuler MD [Primary Care Provider] - 1-2 days Patient Instructions/Handouts: Generalized Anxiety Disorder (ED) Activity/Diet/Wound Care/Special Instructions: Activity and diet as tolerated. Avoid the use of street drugs and alcohol. Take all medications as prescribed. When you are in need of refills on your medications please contact your medical provider and/or outpatient psychiatrist to have this done. Please go to scheduled outpatient appointment for aftercare treatment. If symptoms return or become worse, call the crisis line at and/or go to the nearest emergency room for evaluation. Discharge Disposition: HOME SELF-CARE
== END 2020-12-20 11:02 | disposition home or self-care (01) | DRG 885 ==
LOC: EC 00:52 → 3MHU 04:37
PROVIDERS: ADMIT Psychiatry & Neurology Psychiatry; ATTEND Psychiatry & Neurology Psychiatry
DX: F20.9 Schizophrenia, unspecified (principal); R45.851 Suicidal ideations; F12.90 Cannabis use, unspecified, uncomplicated; Z20.822 Contact with and (suspected) exposure to COVID-19; F32.9 Major depressive disorder, single episode, unspecified; E07.9 Disorder of thyroid, unspecified; F90.9 Attention-deficit hyperactivity disorder, unspecified type; G47.00 Insomnia, unspecified; Z79.899 Other long term (current) drug therapy; Z71.41 Alcohol abuse counseling and surveillance of alcoholic; Z71.51 Drug abuse counseling and surveillance of drug abuser; Z83.3 Family history of diabetes mellitus
CPT/HCPCS: 80053; 80061; 82075; 83036; 84443; 85025; 87635; 99285

== ENCOUNTER 2021-01-04 20:41 | Emergency (ER) | payer OTHER ==
[2021-01-04] MEDS ORDERED: SODIUM CHLORIDE 0.9% 1,000 ML IV STA ×2 (20:56→21:35)
--- NOTE | 2021-01-04 21:09 | ED ---
General Adult HPI - General Chief complaint: Arrhythmia/Palpitations Stated complaint: Tachycardia Time Seen by Provider: 01/04/21 20:56 Source: patient, EMS, RN notes reviewed Mode of arrival: EMS Limitations: altered mental status - History of Present Illness Initial comments: Patient is a pleasant 20-year-old male presenting to the emergency department with concerns for tachycardia. Patient states he did by [address] Patient also smoked 3 bowls of marijuana as well as 1 blunt. Patient then felt his heart racing. Patient states he normally does smoke a lot of marijuana however has not been recently. Patient denies any energy drink use. Patient states his heart was racing and he felt shaky. Patient states sy mptoms have improved however not completely resolved. No history of similar symptoms previously EMS did have concern for SVT and gave 500 mL of fluid followed by adenosine 6 mg and 12 mg. - Related Data Previous Rx's Medication Instructions Recorded Acetaminophen Tab [Tylenol] 650 mg PO Q4HR PRN tab 12/20/20 Divalproex ER [Depakote ER] 500 mg PO HS 30 Days tab 12/20/20 Nicotine 14Mg/24Hr Patch [Habitrol] 1 patch TRANSDERM DAILY 14 Days 12/20/20 patch Paliperidone IM [Invega Sustenna] 156 mg IM QMONTHLY #1 ml 12/20/20 diphenhydrAMINE [Benadryl] 25 mg PO HS PRN 30 Days cap 12/20/20 Allergies Allergy/AdvReac Type Severity Reaction Status Date / Time No Known Allergies Allergy Verified 02/03/20 19:13 Review of Systems ROS Statement: Those systems with pertinent positive or pertinent negative responses have been documented in the HPI. ROS Other: All systems not noted in ROS Statement are negative. Constitutional: Denies: fever Eyes: Denies: eye pain ENT: Denies: ear pain Respiratory: Denies: cough, dyspnea Cardiovascular: Reports: as per HPI, palpitations Endocrine: Denies: fatigue Gastrointestinal: Denies: abdominal pain Genitourinary: Denies: dysuria Musculoskeletal: Denies: back pain Skin: Denies: rash Neurological: Denies: weakness Past Medical History Past Medical History: Thyroid Disorder Additional Past Medical History / Comment(s): L thyroid nodule <1 CM, ? parathyr oid problem History of Any Multi-Drug Resistant Organisms: None Reported Past Surgical History: No Surgical Hx Reported Past Anesthesia/Blood Transfusion Reactions: No Reported Reaction Additional Past Anesthesia/Blood Transfusion Reaction / Comment(s): Pt has never had surgery Past Psychological History: ADD/ADHD Smoking Status: Light tobacco smoker Past Alcohol Use History: Occasional Past Drug Use History: Marijuana, Prescription Drug Abuse - Past Family History Mother Additional Family Medical History / Comment(s): ADHD Father Family Medical History: No Reported History Additional Family Medical History / Comment(s): Father is healthy grandfather Family Medical History: Diabetes Mellitus General Exam Limitations: no limitations General appearance: alert, in no apparent distress Head exam: Present: normocephalic Eye exam: Present: PERRL, EOMI, other (Scleral injection) ENT exam: Present: normal oropharynx Neck exam: Present: normal inspection Respiratory exam: Present: normal lung sounds bilaterally Cardiovascular Exam: Present: tachycardia, normal heart sounds Expanded Peripheral pulses: 2+: Radial (R), Radial (L), Posterior Tibialis (R), Posterior Tibialis (L) GI/Abdominal exam: Present: soft. Absent: tenderness Extremities exam: Present: normal inspection. Absent: pedal edema, calf tenderness Neurological exam: Present: alert Psychiatric exam: Present: anxious Skin exam: Present: normal color Course Vital Signs 01/04/21 20:52 Temperature 99.4 F Pulse Rate 134 H Respiratory 16 Rate Blood Pressure 144/78 O2 Sat by Pulse 98 Oximetry - Reevaluation(s) Reevaluation #1: 01/04/21 21:08 Patient with dialysis technician with sinus tachycardia, rate 133. Patient was placed on dialysis technician to monitor for arrhythmia and patient with history of tachycardia. EKG Findings - EKG Comments: EKG Findings:: Sinus cardia rate 153. IA 120. QRS 78. QT 250. QTC 399. Normal axis. Normal QRS. Nonspecific T waves. Medical Decision Making - Medical Decision Making Patient reevaluated and resting comfortably in bed. Patient updated on results. - Lab Data Result diagrams: 01/04/21 21:06 01/04/21 21:06 Lab Results 01/04/21 01/04/21 01/04/21 Range/Units 21:06 21:06 21:06 WBC 8.1 (4.0-11.0) k/uL RBC 5.09 (4.30-5.90) m/uL Hgb 15.2 (13.0-17.5) gm/dL Hct 47.1 (39.0-53.0) % MCV 92.7 (80.0-100.0) fL MCH 29.9 (25.0-35.0) pg MCHC 32.3 (31.0-37.0) g/dL RDW 14.3 (11.5-15.5) % Plt Count 269 (150-450) k/uL MPV 7.4 Neutrophils % 61 % Lymphocytes % 29 % Monocytes % 6 % Eosinophils % 1 % Basophils % 0 % Neutrophils # 4.9 (1.3-7.7) k/uL Lymphocytes # 2.4 (1.0-4.8) k/uL Monocytes # 0.5 (0-1.0) k/uL Eosinophils # 0.1 (0-0.7) k/uL Basophils # 0.0 (0-0.2) k/uL PT 10.0 (9.0-12.0) sec INR 0.9 (<1.2) APTT 21.8 L (22.0-30.0) sec Sodium 137 (137-145) mmol/L Potassium 4.4 (3.5-5.1) mmol/L Chloride 104 (98-107) mmol/L Carbon Dioxide 25 (22-30) mmol/L Anion Gap 8 mmol/L BUN 9 (9-20) mg/dL Creatinine 1.03 (0.66-1.25) mg/dL Est GFR (CKD-EPI)AfAm >90 (>60 ml/min/1.73 sqM) Est GFR (CKD-EPI)NonAf >90 (>60 ml/min/1.73 sqM) Glucose 134 H (74-99) mg/dL Calcium 8.8 (8.4-10.2) mg/dL Magnesium 2.1 (1.6-2.3) mg/dL Total Bilirubin 0.2 (0.2-1.3) mg/dL AST 23 (17-59) U/L ALT 17 (4-49) U/L Alkaline Phosphatase 71 (38-126) U/L Troponin I (0.000-0.034) ng/mL Total Protein 6.7 (6.3-8.2) g/dL Albumin 4.0 (3.5-5.0) g/dL TSH 0.764 (0.465-4.680) mIU/L Free T4 0.67 L (0.78-2.19) ng/dL Free T3 pg/mL 3.7 (2.8-5.3) pg/ml Valproic Acid <10.0 ug/mL Coronavirus (PCR) (Not Detectd) 01/04/21 01/04/21 Range/Units 21:06 21:29 WBC (4.0-11.0) k/uL RBC (4.30-5.90) m/uL Hgb (13.0-17.5) gm/dL Hct (39.0-53.0) % MCV (80.0-100.0) fL MCH (25.0-35.0) pg MCHC (31.0-37.0) g/dL RDW (11.5-15.5) % Plt Count (150-450) k/uL MPV Neutrophils % % Lymphocytes % % Monocytes % % Eosinophils % % Basophils % % Neutrophils # (1.3-7.7) k/uL Lymphocytes # (1.0-4.8) k/uL Monocytes # (0-1.0) k/uL Eosinophils # (0-0.7) k/uL Basophils # (0-0.2) k/uL PT (9.0-12.0) sec INR (<1.2) APTT (22.0-30.0) sec Sodium (137-145) mmol/L Potassium (3.5-5.1) mmol/L Chloride (98-107) mmol/L Carbon Dioxide (22-30) mmol/L Anion Gap mmol/L BUN (9-20) mg/dL Creatinine (0.66-1.25) mg/dL Est GFR (CKD-EPI)AfAm (>60 ml/min/1.73 sqM) Est GFR (CKD-EPI)NonAf (>60 ml/min/1.73 sqM) Glucose (74-99) mg/dL Calcium (8.4-10.2) mg/dL Magnesium (1.6-2.3) mg/dL Total Bilirubin (0.2-1.3) mg/dL AST (17-59) U/L ALT (4-49) U/L Alkaline Phosphatase (38-126) U/L Troponin I <0.012 (0.000-0.034) ng/mL Total Protein (6.3-8.2) g/dL Albumin (3.5-5.0) g/dL TSH (0.465-4.680) mIU/L Free T4 (0.78-2.19) ng/dL Free T3 pg/mL (2.8-5.3) pg/ml Valproic Acid ug/mL Coronavirus (PCR) Not Detected (Not Detectd) - Radiology Data Radiology results: image reviewed (Chest x-ray shows no acute process) Disposition Clinical Impression: Tachycardia Disposition: HOME SELF-CARE Condition: Stable Instructions (If sedation given, give patient instructions): Heart Palpitations (ED) Additional Instructions: Do not use medications not prescribed to. No illicit drug use. Avoid marijuana. Please follow-up with primary care physician in the next day or 2 for recheck. Return for increased heart rate, worsening or changing symptoms or other concerns. Is patient prescribed a controlled substance at d/c from ED?: No Referrals: Sydni Schuler MD [Primary Care Provider] - 1-2 days Time of Disposition: 22:27
[2021-01-04 21:21] LABS: Basophils % (A) 0 %; Eosinophils # (A) 0.1 k/uL (0-0.7); Eosinophils % (A) 1 %; HCT 47.1 % (39.0-53.0); HGB 15.2 gm/dL (13.0-17.5); Lymphocytes # (A) 2.4 k/uL (1.0-4.8); Lymphocytes % (A) 29 %; MCH 29.9 pg (25.0-35.0); MCHC 32.3 g/dL (31.0-37.0); MCV 92.7 fL (80.0-100.0); Mean Platelet Volume 7.4; Monocytes # (A) 0.5 k/uL (0-1.0); Monocytes % (A) 6 %; Neutrophils # (A) 4.9 k/uL (1.3-7.7); Neutrophils % (A) 61 %; Platelet Count 269 k/uL (150-450); RBC 5.09 m/uL (4.30-5.90); RDW 14.3 % (11.5-15.5); WBC 8.1 k/uL (4.0-11.0)
--- NOTE | 2021-01-04 21:28 | XR ---
EXAMINATION TYPE: XR chest 1V portable DATE OF EXAM: 01/04/2021 COMPARISON: 11/17/2018 HISTORY: Dysrhythmia TECHNIQUE: Single view FINDINGS: Heart and mediastinum are normal. Lungs are clear. Diaphragm is normal. Bony thorax appears normal. IMPRESSION: Normal chest. No change
[2021-01-04 21:31] LABS: Anion Gap 8 mmol/L; Blood Urea Nitrogen 9 mg/dL (9-20); Carbon Dioxide 25 mmol/L (22-30); Chloride 104 mmol/L (98-107); Glucose 134 mg/dL (74-99); Potassium 4.4 mmol/L (3.5-5.1); Sodium 137 mmol/L (137-145)
[2021-01-04 21:32] LABS: ALT 17 U/L (4-49); AST 23 U/L (17-59); African American GFR (CKD) >90 (>60 ml/min/1.73 sqM); Alkaline Phosphatase 71 U/L (38-126); Calcium 8.8 mg/dL (8.4-10.2); Magnesium 2.1 mg/dL (1.6-2.3); Non-African American GFR(CKD) >90 (>60 ml/min/1.73 sqM); Total Bilirubin 0.2 mg/dL (0.2-1.3); Total Protein 6.7 g/dL (6.3-8.2)
[2021-01-04 21:36] LABS: Valproic Acid (Depakene) <10.0 ug/mL
[2021-01-04 21:37] LABS: INR 0.9 (<1.2)
[2021-01-04 21:47] LABS: T4, Free (Free Thyroxine) 0.67 ng/dL (0.78-2.19)
[2021-01-04 21:49] LABS: Partial Thromboplastin Time 21.8 sec (22.0-30.0)
[2021-01-04 23:40] VITALS: BP 118/78; PULSE 87; RESP 18; TEMP 98.1
== END 2021-01-04 23:40 | disposition home or self-care (01) ==
LOC: EC 20:41
DX: R00.0 Tachycardia, unspecified (principal); E07.9 Disorder of thyroid, unspecified; F90.9 Attention-deficit hyperactivity disorder, unspecified type; F17.290 Nicotine dependence, other tobacco product, uncomplicated; F12.90 Cannabis use, unspecified, uncomplicated; Z20.822 Contact with and (suspected) exposure to COVID-19
CPT/HCPCS: 36415; 71045; 80053; 80164; 83735; 84439; 84443; 84481; 84484; 85025; 85610; 85730; 87635; 93005; 99285

== ENCOUNTER 2022-02-05 12:46 | Inpatient (IN) | payer MEDICAID, OTHER ==
[2022-02-05] MEDS ORDERED: LORazepam 2 MG/ML INJ IM STA (13:29)
[2022-02-05] MEDS ORDERED: HALOPERIDOL LACTATE 5 MG/ML 1 ML VIAL IM ONE (13:29)
[2022-02-05] MEDS ORDERED: diphenhydrAMINE 50 MG/ML 1 ML VIAL IM STA (13:29)
--- NOTE | 2022-02-05 16:22 | ED ---
Psych HPI - General Chief Complaint: Psychiatric Symptoms Stated Complaint: Petition Time Seen by Provider: 02/05/22 13:03 Source: patient, police, RN notes reviewed Mode of arrival: ambulatory - History of Present Illness Initial Comments: This is a 21-year-old male who presents to the emergency department for psychiatric evaluation. Patient was brought in by police and petitioned after his grandmother called 911. She reported that he was making both suicidal and homicidal statements. He does have a substantial psychiatric history, but has not seen [facility] since 2020. Not currently on any medications or receiving therapy. He has been noting paranoid behavior and believes that people are trying to kill him and his grandmother. He has been threatening to kill himself and making threats against other individuals. States that he wants to protect his grandmother and that is why he is making these homicidal statements. His grandmother has confirmed that there is no one trying to kill or harm them in any way and this is all related to his paranoia. Patient is yelling expletives at staff and is very restless in the examination room. Denies any fevers, chills, sore throat, cough, dyspnea, chest pain, palpitations, abdominal pain, nausea, vomiting, diarrhea, back pain, or headaches. MD Complaint: suicidal ideation History of same: Yes - Related Data Home Medications Medication Instructions Recorded Confirmed No Known Home Medications 02/05/22 02/05/22 Allergies Allergy/AdvReac Type Severity Reaction Status Date / Time No Known Allergies Allergy Verified 02/03/20 19:13 Review of Systems ROS Statement: Those systems with pertinent positive or pertinent negative responses have been documented in the HPI. ROS Other: All systems not noted in ROS Statement are negative. Past Medical History Past Medical History: Thyroid Disorder Additional Past Medical History / Comment(s): L thyroid nodule <1 CM, ? parathyroid problem History of Any Multi-Drug Resistant Organisms: None Reported Past Surgical History: No Surgical Hx Reported Past Anesthesia/Blood Transfusion Reactions: No Reported Reaction Additional Past Anesthesia/Blood Transfusion Reaction / Comment(s): Pt has never had surgery Past Psychological History: ADD/ADHD Smoking Status: Light tobacco smoker Past Alcohol Use History: Occasional Past Drug Use History: Marijuana, Prescription Drug Abuse - Past Family History Mother Additional Family Medical History / Comment(s): ADHD Father Family Medical History: No Reported History Additional Family Medical History / Comment(s): Father is healthy grandfather Family Medical History: Diabetes Mellitus General Exam Limitations: no limitations General appearance: alert Head exam: Present: atraumatic, normocephalic, normal inspection Respiratory exam: Present: normal lung sounds bilaterally. Absent: respiratory distress, wheezes, rales, rhonchi, stridor Cardiovascular Exam: Present: regular rate, normal rhythm, normal heart sounds. Absent: systolic murmur, diastolic murmur, rubs, gallop, clicks Neurological exam: Present: alert Psychiatric exam: Present: homicidal ideation, suicidal ideation Expanded Focused psych exam: Present: paranoid, perseverating Skin exam: Present: warm, dry, intact, normal color. Absent: rash Course Vital Signs 02/05/22 12:53 Temperature 98.9 F Pulse Rate 102 H Respiratory 20 Rate Blood Pressure 120/73 O2 Sat by Pulse 97 Oximetry Medical Decision Making - Medical Decision Making This is a 21-year-old male who presents to the emergency department for psychiatric evaluation. Patient's BAT was 0 and he was clear for EPS evaluation. He started to become very belligerent with the staff, and was subsequently given Haldol and Ativan with good effect. EPS determined that the patient met admission criteria due to active suicidal and homicidal statements. Patient was petitioned for admission. I am in agreement with this decision due to his active suicidal and homicidal statements. This case was discussed in detail with the attending ED physician. Presentation, findings, and treatment plan discussed in detail as well. - Lab Data Lab Results 02/05/22 Range/Units 15:07 Coronavirus (PCR) Not Detected (Not Detectd) Disposition Clinical Impression: Suicidal ideation, Homicidal ideation, Paranoid delusion Disposition: ADMITTED IP TO THIS HOSP
[2022-02-05] MEDS ORDERED: MAG HYDROX/AL HYDROX/SIMETH 30 ML CUP PO PRN (17:04)
[2022-02-05] MEDS ORDERED: MAGNESIUM HYDROXIDE 2,400 MG/10 ML CUP PO PRN (17:04)
[2022-02-05] MEDS ORDERED: HALOPERIDOL LACTATE 5 MG/ML 1 ML VIAL IM PRN (17:04)
[2022-02-05] MEDS ORDERED: ACETAMINOPHEN TAB 325 MG TAB PO PRN (17:04)
[2022-02-05 17:36] LABS: Appearance,Urine Clear (Clear); Bilirubin,Urine Negative (Negative); Blood,Urine Negative (Negative); Color,Urine Yellow; Glucose,Urine (UA) Negative (Negative); Ketones,Urine 2+ (Negative); Leukocyte Esterase,Urine Negative (Negative); Nitrite,Urine Negative (Negative); PH, Urine 5.5 (5.0-8.0); Protein,Urine Trace (Negative); Specific Gravity,Urine 1.021 (1.001-1.035); Urobilinogen,Urine <2.0 mg/dL (<2.0)
[2022-02-05 17:47] LABS: Amphetamine Screen,Urine Not Detected (NotDetected); Barbiturate Screen,Urine Not Detected (NotDetected); Benzodiazepines Screen,Urine Not Detected (NotDetected); Cocaine Screen,Urine Not Detected (NotDetected); Methadone Screen, Urine Not Detected (NotDetected); Opiate Screen,Urine Not Detected (NotDetected); Oxycodone Screen, Urine Not Detected (NotDetected); Phencyclidine Screen,Urine Not Detected (NotDetected); Tricyclic Antidepressant,Urine Not Detected (NotDetected); Urn Cannabinoid Scrn Detected (NotDetected)
[2022-02-05] MEDS: LORazepam 2 MG/ML INJ IM PRN (17:56)
--- NOTE | 2022-02-06 04:14 | P.PN ---
Progress Note - Text Progress Note Date: 02/05/22 Attempted to see the patient in the mental health unit at 2200 on 02/05. The patient was sedated and inappropriate for evaluation as per the mental health unit RN.
--- NOTE | 2022-02-06 11:51 | P.HP ---
Psychiatric H&P - . H&P Date: 02/06/22 History & Physical: Allergies Allergy/AdvReac Type Severity Reaction Status Date / Time No Known Allergies Allergy Verified 02/03/20 19:13 Vital Signs Temp 98.0 F 02/05/22 18:25 Pulse 101 H 02/05/22 18:25 Resp 18 02/05/22 18:25 BP 147/104 02/05/22 18:25 Pulse Ox 96 02/05/22 18:25 FiO2 Intake & Output 02/05/22 02/06/22 02/06/22 18:59 06:59 18:59 Weight 104.9 kg Laboratory Last Values Urine Color Yellow 02/05/22 17:27 Urine Appearance Clear (Clear) 02/05/22 17:27 Urine pH 5.5 (5.0-8.0) 02/05/22 17:27 Ur Specific [place] 1.021 (1.001-1.035) 02/05/22 17:27 Urine Protein Trace (Negative) H 02/05/22 17:27 Urine Glucose (UA) Negative (Negative) 02/05/22 17:27 Urine Ketones 2+ (Negative) H 02/05/22 17:27 Urine Blood Negative (Negative) 02/05/22 17:27 Urine Nitrite Negative (Negative) 02/05/22 17:27 Urine Bilirubin Negative (Negative) 02/05/22 17:27 Urine Urobilinogen <2.0 mg/dL (<2.0) 02/05/22 17:27 Ur Leukocyte Esterase Negative (Negative) 02/05/22 17:27 Urine Opiates Screen Not Detected (NotDetected) 02/05/22 17:27 Ur Oxycodone Screen Not Detected (NotDetected) 02/05/22 17:27 Urine Methadone Screen Not Detected (NotDetected) 02/05/22 17:27 Ur Propoxyphene Screen Not Detected (NotDetected) 02/05/22 17:27 Ur Barbiturates Screen Not Detected (NotDetected) 02/05/22 17:27 U Tricyclic Antidepress Not Detected (NotDetected) 02/05/22 17:27 Ur Phencyclidine Scrn Not Detected (NotDetected) 02/05/22 17:27 Ur Amphetamines Screen Not Detected (NotDetected) 02/05/22 17:27 U Methamphetamines Scrn Not Detected (NotDetected) 02/05/22 17:27 U Benzodiazepines Scrn Not Detected (NotDetected) 02/05/22 17:27 Urine Cocaine Screen Not Detected (NotDetected) 02/05/22 17:27 U Marijuana (THC) Screen Detected (NotDetected) H 02/05/22 17:27 Coronavirus (PCR) Not Detected (Not Detectd) 02/05/22 15:07 02/06/22 11:51 IDENTIFYING DATA: Patient is a 21-year-old -[place] male with a significant history of schizophrenia who presents to the hospital on 02/05/2022, brought in by police under petition for mental health treatment. HPI: Patient presented to the hospital on 02/05/2022, [facility] on petition for mental health treatment. The petition was filled out by the development architect who noted "patient called 911. He was very agitated made statements that people would . The patient's grandmother reported that he was up all night and very agitated. He made verbal threats about killing numerous people including himself. As per initial clinical certificate, the patient was voicing suicidal and homicidal ideations towards his grandmother. The patient was subsequently admitted onto our psychiatric unit. Upon evaluation our psychiatric unit, the patient continues to be elevated and labile. He maintains that his family, in particular his grandmother, aunt, and uncle have been conspiring against him and they are the reasons why he was incarcerated in the first place. He goes on a rant about how his uncle attempted to increase the charges against him when he was incarcerated from domestic violence to assault with a deadly weapon. He vehemently denies that he had any firearm and states that his uncle reported that he did. The patient goes on multiple rants about how everyone is after him because of [place] and that this all stems from altercations with another group [place] the [place]. Regards to his mental health, the patient does admit that he has not been sleeping. He however states that he has not been taking his medications because he felt that the medications that he was previously prescribed was causing him to shake uncontrollably and that they have negative side effects which she does not want to be a part of. He notes that Risperdal can cause "boobs to grow" and therefore would refuse it. He is endorsing vague homicidal threats but is denying any suicidal ideation, intention, and/or plan. The patient is subsequently certified and admitted for psychiatric evaluation and treatment. PAST PSYCHIATRIC HISTORY: Patient has previous diagnosis of schizophrenia and nicotine dependence. The patient was proved to prescribe Invega Sustenna and Depakote. Uncertain as to when he last received this medication. He was last hospitalized on our psychiatric unit in November 2020. He also has a previous admission at [facility] in 2019. Patient denies any psychiatric outpatient follow-up. He denies any suicidal attempts in the past. PMH: Past Medical History: Thyroid Disorder Additional Past Medical History / Comment(s): L thyroid nodule <1 CM, ? parathyroid problem History of Any Multi-Drug Resistant Organisms: None Reported Past Surgical History: No Surgical Hx Reported Past Anesthesia/Blood Transfusion Reactions: No Reported Reaction Additional Past Anesthesia/Blood Transfusion Reaction / Comment(s): Pt has never had surgery Past Psychological History: ADD/ADHD Smoking Status: Light tobacco smoker Past Alcohol Use History: Occasional Past Drug Use History: Marijuana, Prescription Drug Abuse ALLERGIES: NO KNOWN DRUG ALLERGIES CHEMICAL DEPENDENCY HISTORY: Patient does admit to cannabis use. No other substance use is endorsed at this time. FAMILY PSYCHIATRIC/SUBSTANCE USE HISTORY: Unable to assess. SOCIAL HISTORY: Patient reports that he was born and raised in [place]. He was recently incarcerated this past June for domestic violence towards his grandmother. He vehemently denies any access to firearms or other weapons. MENTAL STATUS EXAM: General Appearance: Patient appears to be stated age is alert, difficult to direct but attempts to cooperate. Patient appears to have fair hygiene and grooming. Behavior: Patient displays psychomotor agitation. Unable to sit still. Poor eye contact. Speech: Patient's speech is pressured, hyperverbal, tangential. Mood/Affect: Patient reports their mood is "pissed off," affect is congruent and expansive. Suicidality/Homicidality: Patient endorses homicidal ideation. No suicidal ideation endorsed to this provider. Perceptions: Patient denies any visual hallucinations and denies any auditory hallucinations Though content/process: Patient presents with a flight of ideas and paranoid delusions. Memory and concentration: AOX3, grossly intact for the purposes of this session. Concentration appears to be poor. Judgment and insight: Poor. STRENGTHS/WEAKNESSES: Strength is that the patient presented in relatively good health. Weakness that the patient has very poor insight and judgment. INTELLECT: average IMPRESSIONS: Schizophrenia Cannabis use disorder PLAN: -Patient is admitted under involuntary status to [facility] for stabilization of psychiatric symptoms and safety. A second certification was completed and along with petition will be filed for court. -Medications : Will start patient on Prolixin 3 mg by mouth twice a day for psychosis -Ativan and Haldol PRN for agitation/aggression -Patient refused to participate in the informed consent conversation. -Internal Medicine consult to perform medical evaluation and physical. -SW on board for discharge planning. Encourage patient to participate in groups to work on coping skills. 02/06/22 11:51
[2022-02-06] MEDS: NICOTINE 14MG/24HR PATCH TRANSDERM SCH (13:26)
[2022-02-06] MEDS: haloperidoL 5 MG TAB PO PRN (21:23)
[2022-02-06] MEDS: LORazepam 1 MG TAB PO PRN (21:23)
[2022-02-07 08:46] VITALS: RESP 16
[2022-02-07] MEDS: LORazepam 1 MG TAB PO PRN ×2 (09:16→22:54)
[2022-02-07] MEDS: NICOTINE 14MG/24HR PATCH TRANSDERM SCH (10:18)
[2022-02-07] MEDS ORDERED: HALOPERIDOL LACTATE 5 MG/ML 1 ML VIAL IM STA (12:08)
[2022-02-07] MEDS: LORazepam 2 MG/ML INJ IM PRN (12:12)
[2022-02-07] MEDS: haloperidoL 5 MG TAB PO PRN (22:54)
[2022-02-08] MEDS: NICOTINE 14MG/24HR PATCH TRANSDERM SCH (08:37)
[2022-02-08] MEDS: LORazepam 1 MG TAB PO PRN ×2 (10:45→20:42)
[2022-02-08] MEDS: haloperidoL 5 MG TAB PO PRN ×2 (10:45→20:42)
--- NOTE | 2022-02-08 15:37 | PN ---
PROGRESS NOTE DATE OF SERVICE: 02/07/2022 CHIEF COMPLAINT: The patient was admitted for agitation and making threatening statements to self and others. He was admitted on petition. INTERVAL HISTORY: The patient has been doing fair. He had a reserved day yesterday, mostly he kept to himself. Staff observed him in his room, where he would be talking to himself quite a bit. Statements he was making where things such as "the end this coming, it is world war 3 and no one knows it. The correctional sergeant are crooked." He took oral p.r.n. medications yesterday in the evening time. He slept fairly well last night. Today, he has had some ups and downs in the morning time. He came to the nursing station and was yelling, asking for the shower door to be open. He was given Ativan 2 mg p.o. p.r.n. He has been out on the unit. He attended the 0 group last night and was noted to be compliant and also hyperverbal. He attended the 11 a.m. group today and was noted to be "blunted, attentive, compliant, concrete, and appropriate." When I saw him early in the afternoon, he made various random comments. He became quite restless and stood up and paced back and forth in the room. He then became increasingly agitated to the point that he was almost yelling. He made some threatening statements, though nothing directed to anyone specifically. At one point, he came up and stood almost face-to- face with me. At another point, he attempted to close the door when other staff came to the room. He pushed against the door to keep a close, though ultimately staff came into the room. For most of the interview, he seemed to be in an agitated state, though in the midst of all of that time when I asked him how he was doing with his medications, he became quite calm in his manner and said he was okay with the medications and that he had taken them and seemed to indicate they might be helping, though he did not say with what. Later on in the day, when I talked to him about the situation he had been through, he did acknowledge that he talks to himself, which I advised him had been reported by staff. He said that he does not have hallucinations and that he does think it is important for one to talk to themselves. It is noted that during the period where he was agitated, he was escorted back to his room, though he did not require any physical intervention. He excepted IM medications and received Haldol 10 mg and Ativan 2 mg IM without any difficulties. MENTAL STATUS EXAM: Patient was agitated as noted above. He made various statements about how he was trapped coming in the hospital and that how he was denying that any of the things that were documented about him were false. He spoke in a clear, coherent voice, though tended to ramble. His affect was intense. His mood dysphoric. He was significantly distressed. He continues to show thought disorder symptoms, though does not engage in any productive conversation addressing these issues. He made statements about to others, though he did not specify any specific intent, person, or means. On cognitive exam, he was oriented and alert. ASSESSMENT: I will continue the current diagnosis and treatment plan. We will continue to encourage the patient to come to attend groups. I will continue Prolixin. I will increase the dose to 5 mg twice a day. It is difficult to determine with his episodes of agitation such as today how much of that is driven by psychosis versus how much may be behavioral and even with a significant degree of volitional behavior with his choosing to present in a dramatic fashion. The fact that in the midst of his intense behavior, he is able to show some calm rational responses as well as being able to cooperate to go to his room and except medications. He does lean towards the latter. I advise the patient that we observe him as having behavior that is suggestive of auditory hallucinations with his fairly persistent self talk. I briefly reviewed medication issues with the patient, though kept it limited as he was not appearing to be able to engage much in the conversation. We will focus on stabilization and discharge planning. MMODL / IJN: [id number] /
--- NOTE | 2022-02-09 02:45 | PN ---
PROGRESS NOTE DATE OF SERVICE: 02/08/2022 CHIEF COMPLAINT: The patient was making verbal threats about killing numerous people including himself. INTERVAL HISTORY: The patient has had some ups and downs. He had a difficult period in the afternoon yesterday. He got into quite an agitated state. It is noted that in the midst of that he was able to cooperate with staff when they helped to redirect him. He went back to his room. He accepted medications as the day went on. After that, he seemed to do fairly well. He attended the 1899 sleep hygiene group and was noted to be compliant, appropriate, and blunted in his mood. He slept fairly well last night. Nursing documented that he slept 6 hours, up to 6:30 in the morning. Today, he has been up, he has been out on the unit. He wanders about. He interacts some with others. For the most part, he has maintained a fairly even mood, though does present in a somewhat withdrawn manner. He has not had any significant difficulties with emotions today. It is noteworthy that early in the afternoon he walked into my office and apologized at length about feeling that he got out of control yesterday with his emotions. He seemed to respond to reassurance and support. I again talked to him later in the day. His main focus was that he was feeling humiliated. He said that people took advantage of him in various situations and then they come back to try to take advantage of him even more. He broke down and cried as he was talking about that. He was quite focused on wanting to take care of his grandmother with whom he lives. He feels that he can be her best support. He did note that he had been working up until recently and anticipated getting a job presumably when he gets out of the hospital. He said a job had been waiting for him just before he came in. He tolerates his psychotropic medication and does feel that it is helping. MENTAL STATUS EXAMINATION: The patient sat with some restlessness. He gave fairly good eye contact at some points, and at other points he put his head down and was tearful as he talked. He answered questions appropriately. He did tend to ramble some and talk spontaneously about things that had disturbed him in the past and seemed to haunt him at the present. His affect was at times intense. His mood depressed. He was moderately distressed. He continues to show some indications of thought disorder. He was voicing no thoughts of harm. He was oriented and alert. ASSESSMENT: I will continue the current diagnosis and treatment plan. The patient will continue on Prolixin 5 mg twice a day. The dose has been increased from 3 mg twice a day. I briefly reviewed medication issues with the patient. I kept it limited as he was not too inclined to engage in that conversation. I provided support in regard to some of the recent experiences he has had. We talked about his option of returning to school to complete his GED and then possibly doing some community college course work. We will focus on stabilization and discharge planning. TEDDYL / OLEGARION: [id number] /
[2022-02-09] MEDS: NICOTINE 14MG/24HR PATCH TRANSDERM SCH ×2 (08:24→11:44)
[2022-02-09] MEDS ORDERED: HALOPERIDOL LACTATE 5 MG/ML 1 ML VIAL IM STA (08:43)
[2022-02-09] MEDS: LORazepam 2 MG/ML INJ IM PRN (08:48)
--- NOTE | 2022-02-09 09:40 | PN ---
PROGRESS NOTE DATE OF SERVICE: 02/09/2022 CHIEF COMPLAINT: The patient was making verbal threats about killing numerous people including himself. INTERVAL HISTORY: The patient continues to have significant issues with episodes of agitation. He became quite agitated yesterday earlier in the day and received p.r.n. medications. As the day went on, things seem to go better for him. He did get agitated in a morning group around 10:30. It is noted that when he begins to get elevated, he can become quite intense. On the other hand, he also will respond to verbal support without needing any other intervention. He accepts medications. Staff noted last evening later in the evening he became quite intense again. He appeared to be responding to internal stimuli. He was given p.r.n. Haldol and Ativan. He slept 5 hours last night. This morning he was up and around 8:30 in the morning got into an agitated state where he was yelling. He was demanding to go home. When security came to the unit, he easily went back to his room when asked to do so. He accepted medication. He received Haldol 10 mg IM and Ativan 2 mg IM. After that, he was out on the unit and seemed to be in a calmer mood. His focus continues to be on wanting to go home. MENTAL STATUS EXAM: The patient was quite intense in the morning when I saw him. He was restless. He was demanding. He got quite loud. His affect was intense. His mood depressed. He was significantly distressed. Staff have observed him responding to auditory hallucinations. It is noteworthy that also he seems to have a bend towards presenting in a dramatic way yet is able to bring himself under control almost instantly. He made vague threats. He is oriented and alert. ASSESSMENT AND PLAN: I will continue with the current diagnosis and treatment plan. One significant issue is that the patient has not been consistent in followup with outpatient mental healthcare. During his 2 previous admissions here in 2019 and 2020, he was discharged on what appears to be a subtherapeutic dose of Invega Sustenna. Both times, he was discharged on Invega 156 mg IM after having received both the 234 mg loading dose and the subsequent 156 mg dose. It is not clear why he would have received subtherapeutic doses. He does not seem to be showing clear response to Prolixin. I will switch the patient to Haldol and would consider initiating a long-acting injectable Haldol. Prolixin will be discontinued, and I will start Haldol 10 mg twice a day. He did receive a 10 mg IM dose this morning. He will receive an oral dose this afternoon and this evening. He will continue Haldol 10 mg twice a day. The best I am able to tell is that it is critical for the patient to be on assertive doses of antipsychotic medications. There is one question as to whether there are other factors that precipitate his having difficulties this time of the year, which has emerged in the last 3 years. We will focus on stabilization and discharge planning. MMENRIQUETA / OLEGARION: [id number] /
[2022-02-09] MEDS: haloperidoL 5 MG TAB PO SCH ×2 (13:48→20:59)
[2022-02-09] MEDS: LORazepam 1 MG TAB PO PRN (20:58)
[2022-02-09] MEDS: traZODone HCL 100 MG TAB PO SCH (20:59)
[2022-02-10 06:32] VITALS: BP 123/61; PULSE 111; TEMP 97.8
[2022-02-10] MEDS: NICOTINE 14MG/24HR PATCH TRANSDERM SCH (08:46)
[2022-02-10] MEDS ORDERED: HALOPERIDOL DECANOATE 100 MG/ML 1 ML VIAL IM STA (11:01)
--- NOTE | 2022-02-10 13:04 | P.PN ---
Progress Note - Text Progress Note Date: 02/10/22 Interval History: Patient was seen resting in bed and was directable and agreeable to speak with credit underwriter in his room. As per chart review, the patient did require administration of Ativan and Haldol twice yesterday for increased agitation and paranoia. The patient was also noted over the weekend to have barricaded himself in the physician's office. Today however, the patient is reporting that he is calm and cooperative and would do what he needs to do in order to be discharged. He has been adherent with his prescribed medications. He is agreeable to receiving a long-acting injectable of Haldol decanoate today. He is currently denying any suicidal or homicidal ideation, intention, and/or plan. He is not reporting any auditory or visual hallucinations. He is denying any paranoia or other delusions. He reports no medical issues or concerns. He signed himself voluntarily on to the psychiatric unit. Mental Status Exam: General Appearance: Patient appears to be stated age is alert, directable, and cooperative. Behavior: Patient is calmly lying down in bed without any agitated behavior. Speech: Patient's speech is fluent and nonpressured. Mood/Affect: Mood is improving mildly, affect is congruent and constricted. Suicidality/Homicidality: Patient denies having any suicidal or homicidal ideation intent or plan. Perceptions: Patient denies any visual hallucinations and denies any auditory hallucinations Though content/process: There is no evidence of any delusional thought content and thought process is linear and goal-directed. Memory and concentration: AOX3, grossly intact for the purposes of this session Judgment and insight: Improving mildly Vital Signs Temp 97.8 F 02/10/22 06:31 Pulse 111 H 02/10/22 06:31 Resp 16 02/10/22 06:31 BP 123/61 02/10/22 06:31 Pulse Ox 97 02/10/22 06:31 FiO2 Assessment Schizophrenia Cannabis use disorder Tobacco use disorder Plan: -Patient continues to meet criteria for inpatient psychiatric admission for symptom stabilization and safety. Patient has signed adult voluntary form and medication consent and was placed in patient's chart. -Medications: Administer Haldol Decanoate 100 mg IM today Continue Haldol 10 mg by mouth twice a day for psychosis Trazodone 100 mg by mouth at bedtime for insomnia -When necessary Ativan and Haldol for agitation/aggression. -NRT - nicotine patch -SW on board for discharge planning. Encouraged the patient to participate in milieu.
[2022-02-10] MEDS: haloperidoL 5 MG TAB PO SCH ×2 (13:40→21:02)
[2022-02-10] MEDS: metFORMIN 500 MG TAB PO SCH (17:33)
[2022-02-10] MEDS: traZODone HCL 100 MG TAB PO SCH (21:03)
[2022-02-11] MEDS: NICOTINE 14MG/24HR PATCH TRANSDERM SCH (09:39)
[2022-02-11] MEDS: metFORMIN 500 MG TAB PO SCH (09:39)
--- NOTE | 2022-02-11 13:45 | P.DS ---
Providers Date of admission: 02/05/22 17:00 Expected date of discharge: 02/11/22 Attending physician: Shashi Genao MD Consults: 02/05/22 17:04 Consult Physician Routine Consulting Provider: [facility] [place] [facility] Consult Reason/Comments: H&P Do you want consulting provider notified?: Yes, Notify in am Primary care physician: Sydni Schuler - Discharge Diagnosis(es) (1) Schizophrenia, chronic with acute exacerbation Current Visit: Yes Status: Acute Priority: High (2) Cannabis abuse Current Visit: Yes Status: Chronic Priority: Medium (3) Nicotine dependence Current Visit: Yes Status: Chronic Priority: Medium Hospital Course: Admission HPI: Patient is a 21-year-old -[place] male with a significant history of schizophrenia who presents to the hospital on 02/05/2022, brought in by police under petition for mental health treatment. Patient presented to the hospital on 02/05/2022, [facility] on petition for mental health treatment. The petition was filled out by the courtroom deputy or calendar clerk who noted "patient called 911. He was very agitated made statements that people would . The patient's grandmother reported that he was up all night and very agitated. He made verbal threats about killing numerous people including himself. As per initial clinical certificate, the patient was voicing suicidal and homicidal ideations towards his grandmother. The patient was subsequently admitted onto our psychiatric unit. Upon evaluation our psychiatric unit, the patient continues to be elevated and labile. He maintains that his family, in particular his grandmother, aunt, and uncle have been conspiring against him and they are the reasons why he was incarcerated in the first place. He goes on a rant about how his uncle attempted to increase the charges against him when he was incarcerated from domestic violence to assault with a deadly weapon. He vehemently denies that he had any firearm and states that his uncle reported that he did. The patient goes on multiple rants about how everyone is after him because of [place] and that this all stems from altercations with another group [place]. Regards to his mental health, the patient does admit that he has not been sleeping. He however states that he has not been taking his medications because he felt that the medications that he was previously prescribed was causing him to shake uncontrollably and that they have negative side effects which she does not want to be a part of. He notes that Risperdal can cause "boobs to grow" and therefore would refuse it. He is endorsing vague homicidal threats but is denying any suicidal ideation, intention, and/or plan. The patient is subsequently certified and admitted for psychiatric evaluation and treatment. Patient has previous diagnosis of schizophrenia and nicotine dependence. The patient was previously prescribed Invega Sustenna and Depakote. Uncertain as to when he last received this medication. He was last hospitalized on our psychiatric unit in November 2020. He also has a previous admission at [facility] in 2019. Patient denies any psychiatric outpatient follow-up. He denies any suicidal attempts in the past. Hospital course: Upon admission to the unit patient was initially presenting as difficult to direct, cooperate, and unpredictable. Patient was however directable and agreeable to commence treatment. Patient got along well with other patients on the unit and followed unit protocol. Patient was compliant with the medications and denied any side effects throughout hospital course. Patient was started on Prolixin for psychosis. The patient had intermittent episodes of agitation including barricading himself in the office along with the covering psychiatrist. The patient was converted from Prolixin to Haldol. Over the course of hospitalization, the patient displayed improvement on this regimen of Haldol and became much more linear, logical, future and goal oriented, and more grounded in reality. Sleep and mood began to improve. Patient spoke of his stressors and engaged in therapy both group and individual. Patient was also seen by medical team for history and physical exam. The patient was eventually transitioned to Haldol decanoate which she received on 02/10/2022. On the day of discharge, the patient is not reporting any suicidal or homicidal ideation, intention, and/or plan. He is not reporting any auditory or visual hallucinations. He denies any paranoia or other delusions. He expresses that he has no access to firearms or other weapons. He remains future and goal oriented and states that he will do his best to follow-up with all his appointments and take medications as directed. Patient was counseled at length on abstaining from all substances including alcohol, marijuana, tobacco and illicit drugs. Prior to discharge, family meeting will be arranged by the social worker masters to answer my questions and ensure safety. Mental status exam: General Appearance: Patient appears to be stated age is alert, pleasant, and cooperative. Patient is in no acute distress and has fair hygiene and grooming Behavior: Patient is calmly seated without any agitated behavior. Speech: Patient's speech is fluent and nonpressured. Mood/Affect: Patient reports their mood is "much better", affect is congruent and euthymic to bright. Suicidality/Homicidality: Patient denies having any suicidal or homicidal ideation intent or plan. Perceptions: Patient denies any auditory or visual hallucinations. Though content/process: There is no evidence of any delusional thought content and thought process is linear and goal-directed. And is future oriented Memory and concentration: AOX3, grossly intact for the purposes of this session. Can spell "WORLD" backwards correctly. Judgment and insight: Improved with guarded prognosis Impression: Schizophrenia Cannabis use disorder Tobacco use disorder Plan: -Continue with discharge today as patient has improved and stabilized psychiatrically and is not currently an imminent threat to himself and/or others. Patient will remain at chronically elevated risk due to the severity of his mental illness as well as his history of nonadherence with treatment and cannabis use. -Continue medications: Haldol Decanoate 100 mg IM every 28 days was administered on 02/10/2022. Next dose due on 03/10/2022. Trazodone 100 mg by mouth at bedtime for insomnia Haldol 10 mg by mouth at bedtime for 5 days Metformin 500 mg by mouth twice a day with meals to curb weight gain Habitrol patches for tobacco cessation -Patient was counseled on the need for medication compliance and appropriate follow-up at mental health and also primary care for medical issues. Patient verbalized understanding and agreed. -Social work to arrange for and conduct family meeting to ensure safety upon discharge and answer any questions/concerns. Social work also to arrange for patients follow up appointments with [facility] for psychiatric care along with follow up with primary care provider. -Patient counseled on abstaining from recreational drugs and marijuana and alcohol. Was informed/educated on the adverse effects on their physical and mental health. Patient verbally agreed and understood. -Patient was instructed to return to the hospital or seek immediate medical care if their psychiatric or medical symptoms do worsen or reoccur. -Psychoeducation and supportive therapy provided to patient. Risks and benefits of pharmacological treatment versus the risks and benefits of nontreatment weight and discussed. Informed consent discussion held. Common side effects of psychotropics discussed such as, but not limited to headache, GI disturbance, sexual dysfunction, movement disorders, sedation, and orthostatic hypotension. Life threatening and blackbox warnings of prescribed medications also discussed. Potential risks of operating a vehicle or heavy machinery discussed with patient at length. Advised on importance of compliance and a reliable and responsible manner. Patient advised to review FDA consumer labeling of all medications prior to taking. Patient verbalized understanding of potential risks, and agrees with current treatment plan. Patient advised to medically contact physician/emergency personnel if any acute changes in condition occur. Vital Signs Temp 97.8 F 02/10/22 06:31 Pulse 111 H 02/10/22 06:31 Resp 16 02/10/22 06:31 BP 123/61 02/10/22 06:31 Pulse Ox 97 02/10/22 06:31 FiO2 Laboratory Results Urine Color Yellow 02/05/22 17: Urine Appearance Clear (Clear) 02/05/22 17: Urine pH 5.5 (5.0-8.0) 02/05/22 17: Ur Specific [place] 1.021 (1.001-1.035) 02/05/22 17: Urine Protein Trace (Negative) H 02/05/22 17: Urine Glucose (UA) Negative (Negative) 02/05/22 17: Urine Ketones 2+ (Negative) H 02/05/22 17: Urine Blood Negative (Negative) 02/05/22 17: Urine Nitrite Negative (Negative) 02/05/22 17: Urine Bilirubin Negative (Negative) 02/05/22 17:27 Urine Urobilinogen <2.0 mg/dL (<2.0) 02/05/22 17: Ur Leukocyte Esterase Negative (Negative) 02/05/22 17:27 Urine Opiates Screen Not Detected (NotDetected) 02/05/22 17:27 Ur Oxycodone Screen Not Detected (NotDetected) 02/05/22 17:27 Urine Methadone Screen Not Detected (NotDetected) 02/05/22 17:27 Ur Propoxyphene Screen Not Detected (NotDetected) 02/05/22 17:27 Ur Barbiturates Screen Not Detected (NotDetected) 02/05/22 17:27 U Tricyclic Antidepress Not Detected (NotDetected) 02/05/22 17:27 Ur Phencyclidine Scrn Not Detected (NotDetected) 02/05/22 17:27 Ur Amphetamines Screen Not Detected (NotDetected) 02/05/22 17:27 U Methamphetamines Scrn Not Detected (NotDetected) 02/05/22 17:27 U Benzodiazepines Scrn Not Detected (NotDetected) 02/05/22 17:27 Urine Cocaine Screen Not Detected (NotDetected) 02/05/22 17:27 U Marijuana (THC) Screen Detected (NotDetected) H 02/05/22 17:27 Coronavirus (PCR) Not Detected (Not Detectd) 02/05/22 15:07 Allergies Allergy/AdvReac Type Severity Reaction Status Date / Time No Known Allergies Allergy Verified 02/03/20 19:13 Patient Condition at Discharge: Stable Plan - Discharge Summary New Discharge Prescriptions: New traZODone HCL [Desyrel] 100 mg PO HS 15 Days tab haloperidoL [Haldol] 10 mg PO HS 5 Days #5 tab Haloperidol Decanoate [Haldol D] 100 mg IM QMONTHLY #1 each metFORMIN HCL [Glucophage] 500 mg PO BID-W/MEALS 30 Days tab Nicotine 14Mg/24Hr Patch [Habitrol] 1 patch TRANSDERM DAILY 15 Days patch Discharge Medication List Haloperidol Decanoate [Haldol D] 100 mg IM QMONTHLY #1 each 02/11/22 [Rx] Nicotine 14Mg/24Hr Patch [Habitrol] 1 patch TRANSDERM DAILY 15 Days patch 02/11/22 [Rx] haloperidoL [Haldol] 10 mg PO HS 5 Days #5 tab 02/11/22 [Rx] metFORMIN HCL [Glucophage] 500 mg PO BID-W/MEALS 30 Days tab 02/11/22 [Rx] traZODone HCL [Desyrel] 100 mg PO HS 15 Days tab 02/11/22 [Rx] Follow up Appointment(s)/Referral(s): Referral, referral [Other] - 02/17/22 3:30 pm Sydni Schuler MD [Primary Care Provider] - 1-2 days Patient Instructions/Handouts: How to Stop Smoking (DC), Schizophrenia (DC) Activity/Diet/Wound Care/Special Instructions: Avoid the use of street drugs and alcohol. Take all prescriptions as prescribed. When you are in need of refills on your medications, please contact your medical provider and/or outpatient psychiatrist to have this done. Please go to scheduled outpatient appointment for aftercare treatment. If symptoms return or become worse, call the crisis line at and/or go to the nearest emergency room for evaluation Discharge Disposition: HOME SELF-CARE
[2022-02-11] MEDS: haloperidoL 5 MG TAB PO SCH (14:29)
== END 2022-02-11 14:34 | disposition home or self-care (01) | DRG 885 ==
LOC: EC 12:46 → 3MHU 17:00
PROVIDERS: ADMIT Psychiatry & Neurology Psychiatry; ATTEND Psychiatry & Neurology Psychiatry
DX: F20.9 Schizophrenia, unspecified (principal); R45.851 Suicidal ideations; F12.10 Cannabis abuse, uncomplicated; F17.210 Nicotine dependence, cigarettes, uncomplicated; F17.290 Nicotine dependence, other tobacco product, uncomplicated; F90.9 Attention-deficit hyperactivity disorder, unspecified type; G47.00 Insomnia, unspecified; R45.850 Homicidal ideations; Z79.84 Long term (current) use of oral hypoglycemic drugs; Z79.899 Other long term (current) drug therapy; Z91.14 Patient's other noncompliance with medication regimen; Z91.83 Wandering in diseases classified elsewhere; Z53.09 Procedure and treatment not carried out because of other contraindication
CPT/HCPCS: 80306; 81003; 82075; 87635; 99285

== ENCOUNTER 2022-02-18 13:55 | Inpatient (IN) | payer MEDICAID, OTHER ==
--- NOTE | 2022-02-18 13:59 | ED ---
Psych HPI <Darline Valdes - Last Filed: 02/18/22 13:59> - General Source: patient, RN notes reviewed - History of Present Illness MD Complaint: suicidal ideation, feels depressed, other <Oleg Danielle - Last Filed: 02/18/22 19:54> - General Chief Complaint: Psychiatric Symptoms Stated Complaint: petition Time Seen by Provider: 02/18/22 16:00 - History of Present Illness Initial Comments: Patient is a 21-year-old -[place] male presenting to the emergency room via police escort for mental health evaluation for homicidal statements and paranoid delusions on petition. (Darline Valdes) I did evaluate this patient personally the patient did present with complaints of hearing voices also feeling homicidal and suicidal also delusional thought patterns. He was here in petition. (Oleg Danielle) - Related Data Previous Rx's Medication Instructions Recorded Haloperidol Decanoate [Haldol D] 100 mg IM QMONTHLY #1 each 02/11/22 Nicotine 14Mg/24Hr Patch [Habitrol] 1 patch TRANSDERM DAILY 15 Days 02/11/22 patch haloperidoL [Haldol] 10 mg PO HS 5 Days #5 tab 02/11/22 metFORMIN HCL [Glucophage] 500 mg PO BID-W/MEALS 30 Days tab 02/11/22 traZODone HCL [Desyrel] 100 mg PO HS 15 Days tab 02/11/22 Allergies Allergy/AdvReac Type Severity Reaction Status Date / Time No Known Allergies Allergy Verified 02/18/22 14:29 Review of Systems ROS Other: All systems not noted in ROS Statement are negative. <Darline Valdes - Last Filed: 02/18/22 13:59> ROS Other: All systems not noted in ROS Statement are negative. <Oleg Danielle - Last Filed: 02/18/22 19:54> ROS Statement: Those systems with pertinent positive or pertinent negative responses have been documented in the HPI. Past Medical History Past Medical History: Thyroid Disorder Additional Past Medical History / Comment(s): L thyroid nodule <1 CM, ? parathyroid problem History of Any Multi-Drug Resistant Organisms: None Reported Past Surgical History: No Surgical Hx Reported Past Anesthesia/Blood Transfusion Reactions: No Reported Reaction Additional Past Anesthesia/Blood Transfusion Reaction / Comment(s): Pt has never had surgery Past Psychological History: ADD/ADHD Smoking Status: Light tobacco smoker Past Alcohol Use History: Occasional Past Drug Use History: Marijuana, Prescription Drug Abuse - Past Family History Mother Additional Family Medical History / Comment(s): ADHD Father Family Medical History: No Reported History Additional Family Medical History / Comment(s): Father is healthy grandfather Family Medical History: Diabetes Mellitus <Darline Valdes - Last Filed: 02/18/22 13:59> General Exam General appearance: alert, in no apparent distress Head exam: Present: atraumatic, normocephalic, normal inspection Eye exam: Present: normal appearance, PERRL, EOMI. Absent: scleral icterus, conjunctival injection, periorbital swelling ENT exam: Present: normal exam, mucous membranes moist Neck exam: Present: normal inspection. Absent: tenderness, meningismus, lymphadenopathy Respiratory exam: Present: normal lung sounds bilaterally. Absent: respiratory distress, wheezes, rales, rhonchi, stridor Cardiovascular Exam: Present: regular rate, normal rhythm, normal heart sounds. Absent: systolic murmur, diastolic murmur, rubs, gallop, clicks GI/Abdominal exam: Present: soft, normal bowel sounds. Absent: distended, tenderness, guarding, rebound, rigid Extremities exam: Present: normal inspection, full ROM, normal capillary refill. Absent: tenderness, pedal edema, joint swelling, calf tenderness Back exam: Present: normal inspection Neurological exam: Present: alert, oriented X3, CN II-XII intact Psychiatric exam: Present: depressed, flat affect, suicidal ideation Skin exam: Present: warm, dry, intact, normal color. Absent: rash <Oleg Danielle - Last Filed: 02/18/22 19:54> - General Exam Comments Initial Comments: Is a well-developed well-nourished awake alert male (Oleg Danielle) Course <Oleg Danielle - Last Filed: 02/18/22 19:54> Vital Signs 02/18/22 14:24 Temperature 98.4 F Pulse Rate 117 H Respiratory 20 Rate Blood Pressure 147/90 O2 Sat by Pulse 98 Oximetry - Reevaluation(s) Reevaluation #1: 02/18/22 19:48 Clinical certification filled out by me (Oleg Danielle) Medical Decision Making <Oleg Danielle - Last Filed: 01/04/23 19:54> - Medical Decision Making The patient was evaluated by the EPS service she will be admitted for inpatient evaluation and treatment Was pt. sent in by a medical professional or institution? @ S please see the patient-[by JAIMIE Quarles, BATTERY INSPECTOR, urgent care, hospital, or senior care] Did you speak to anyone other than the patient for history? @ No-[EMS, parent, family, police, friend?] Did you review nursing and triage notes? @ Yes and agree-[agree or disagree, why?] Were old charts reviewed? @ -[outside hosp., previous admissions, EMS record, old EKG, old radiological studies, urgent care reports/EKGs, senior care records?] Differential Diagnosis? @ Depression, suicidal ideation, psychosis-[chest pain, altered mental status abdominal pain women, abdominal pain men, vaginal bleeding, weakness, fever, dyspnea, syncope, headache, dizziness, GI bleed, back pain, seizure] EKG interpreted by me (3pts min.)? @ -[none] X-rays interpreted by me (1pt min.)? @ -[none] CT interpreted by me (1pt min.)? @ -[none] U/S interpreted by me (1pt. min.)? @ -[none] What testing was considered but not performed? (CT, X-rays, U/S, labs)? Why? @ [CT, X-rays, U/S, labs? Why?] What meds were considered but not given? Why? @ -[none] Did you discuss the management of the patient with other professionals? @ EPS service-[professionals i.e. JAIMIE Avendano, BATTERY INSPECTOR, Lab, RT, Psych Nurse, Machine Maintenance Servicer, Supervisor Scouring Pads, Teacher, School Bus Technician, field nurse case manager? Give summary] Did you reconcile home meds? @ -[none] Was smoking cessation discussed for >3mins.? @ -[none] Was critical care preformed (if so, how long)? @ -[none] Were there social determinants of health that impacted care today? How? (Homelessness, low income, unemployed, alcoholism, drug addiction, transportation, low edu. Level, literacy, decrease access to med. care, usp, rehab)? @ -[Homelessness, low income, unemployed, alcoholism, drug addiction, transportation, low edu. Level, literacy, decrease access to med. care, usp, rehab?] Was there de-escalation of care discussed even if they declined? (Discuss DNR or withdrawal of care, Hospice)? @ -[Discuss DNR or withdrawal of care, Hospice?] What co-morbidities impacted this encounter? (DM, HTN, Smoking, COPD, CAD, Cancer, CVA, Hep., AIDS, mental health diagnosis, sleep apnea, morbid obesity)? @ -[DM, HTN, Smoking, COPD, CAD, Cancer, CVA, Hep., AIDS, mental health diagnosis, sleep apnea, morbid obesity?] Was patient admitted / discharged? @ -[hospital course] Undiagnosed new problem with uncertain prognosis? @ -[none] Drug Therapy requiring intensive monitoring for toxicity (Heparin, Nitro, Insulin, Cardizem)? @ -[none] Were any procedures done? @ -[none] Diagnosis/symptom? @ Depression, suicidal ideation, acute psychosis-[default] Acute, or Chronic, or Acute on Chronic? @ -Acute and chronic [default] Uncomplicated (without systemic symptoms) or Complicated (systemic symptoms)? @ -[default] Side effects of treatment? @ -[none] Exacerbation, Progression, or Severe Exacerbation] @ -[no] Poses a threat to life or bodily function? @ If untreated-[no] (Oleg Danielle) - Lab Data Lab Results 02/18/22 Range/Units 16:35 Urine Opiates Screen Not Detected (NotDetected) Ur Oxycodone Screen Not Detected (NotDetected) Urine Methadone Screen Not Detected (NotDetected) Ur Propoxyphene Screen Not Detected (NotDetected) Ur Barbiturates Screen Not Detected (NotDetected) U Tricyclic Antidepress Not Detected (NotDetected) Ur Phencyclidine Scrn Not Detected (NotDetected) Ur Amphetamines Screen Not Detected (NotDetected) U Methamphetamines Scrn Not Detected (NotDetected) U Benzodiazepines Scrn Not Detected (NotDetected) Urine Cocaine Screen Not Detected (NotDetected) U Marijuana (THC) Screen Detected H (NotDetected) Disposition <Darline Valdes - Last Filed: 02/18/22 13:59> Decision Date: 02/18/22 Decision Time: 19:54 <Oleg Danielle - Last Filed: 01/04/23 19:54> Clinical Impression: Depression, Acute psychosis, Suicidal ideation Disposition: TRANSFER TO PSYCH HOSP/UNIT Condition: Stable Referrals: Sydni Schuler MD [STAFF PHYSICIAN] - 1-2 days
[2022-02-18 17:08] LABS: Amphetamine Screen,Urine Not Detected (NotDetected); Barbiturate Screen,Urine Not Detected (NotDetected); Benzodiazepines Screen,Urine Not Detected (NotDetected); Cocaine Screen,Urine Not Detected (NotDetected); Methadone Screen, Urine Not Detected (NotDetected); Opiate Screen,Urine Not Detected (NotDetected); Oxycodone Screen, Urine Not Detected (NotDetected); Phencyclidine Screen,Urine Not Detected (NotDetected); Tricyclic Antidepressant,Urine Not Detected (NotDetected); Urn Cannabinoid Scrn Detected (NotDetected)
[2022-02-18] MEDS ORDERED: HALOPERIDOL LACTATE 5 MG/ML 1 ML VIAL IM PRN (18:06)
[2022-02-18] MEDS ORDERED: LORazepam 2 MG/ML INJ IM STA (18:07)
[2022-02-18] MEDS ORDERED: diphenhydrAMINE 50 MG/ML 1 ML VIAL IM STA (18:07)
[2022-02-18] MEDS ORDERED: chlorproMAZINE 25 MG TAB PO PRN (21:22)
[2022-02-18] MEDS ORDERED: MAGNESIUM HYDROXIDE 2,400 MG/10 ML CUP PO PRN (21:22)
[2022-02-18] MEDS ORDERED: chlorproMAZINE 25 MG/ML 2 ML AMP IM PRN (21:22)
[2022-02-18] MEDS ORDERED: LORazepam 1 MG TAB PO PRN (21:22)
[2022-02-18] MEDS ORDERED: LORazepam 2 MG/ML INJ IM PRN (21:22)
[2022-02-18] MEDS ORDERED: MAG HYDROX/AL HYDROX/SIMETH 30 ML CUP PO PRN (21:22)
[2022-02-18] MEDS: haloperidoL 5 MG TAB PO SCH ×2 (21:55→22:31)
[2022-02-18] MEDS: traZODone HCL 100 MG TAB PO SCH ×2 (21:55→22:31)
--- NOTE | 2022-02-19 05:15 | P.PN ---
Progress Note - Text Progress Note Date: 02/19/22 Informed by the mental health unit RN that the patient is currently sedated and inappropriate for evaluation at this time.
[2022-02-19] MEDS: NICOTINE 14MG/24HR PATCH TRANSDERM SCH (08:30)
[2022-02-19] MEDS: metFORMIN 500 MG TAB PO SCH ×2 (08:30→16:51)
[2022-02-19] MEDS ORDERED: NICOTINE 14MG/24HR PATCH TRANSDERM SCH (09:00)
[2022-02-19 09:26] LABS: Basophils % (A) 1 %; Eosinophils # (A) 0.1 k/uL (0-0.7); Eosinophils % (A) 1 %; HCT 50.1 % (39.0-53.0); HGB 16.9 gm/dL (13.0-17.5); Lymphocytes # (A) 1.2 k/uL (1.0-4.8); Lymphocytes % (A) 22 %; MCH 30.4 pg (25.0-35.0); MCHC 33.8 g/dL (31.0-37.0); MCV 89.9 fL (80.0-100.0); Mean Platelet Volume 7.5; Monocytes # (A) 0.3 k/uL (0-1.0); Monocytes % (A) 6 %; Neutrophils # (A) 3.9 k/uL (1.3-7.7); Neutrophils % (A) 70 %; Platelet Count 245 k/uL (150-450); RBC 5.57 m/uL (4.30-5.90); RDW 12.6 % (11.5-15.5); WBC 5.5 k/uL (3.8-10.6)
[2022-02-19 10:00] LABS: ALT 19 U/L (4-49); AST 25 U/L (17-59); African American GFR (CKD) >90 (>60 ml/min/1.73 sqM); Albumin 4.6 g/dL (3.5-5.0); Alkaline Phosphatase 82 U/L (38-126); Anion Gap 10 mmol/L; Bilirubin, Delta 0.4 mg/dL (0.0-0.2); Bilirubin,Unconjugated 0.3 mg/dL (0.0-1.1); Blood Urea Nitrogen 9 mg/dL (9-20); Calcium 9.2 mg/dL (8.4-10.2); Carbon Dioxide 26 mmol/L (22-30); Chloride 102 mmol/L (98-107); Glucose 94 mg/dL (74-99); Non-African American GFR(CKD) >90 (>60 ml/min/1.73 sqM); Potassium 4.2 mmol/L (3.5-5.1); Sodium 138 mmol/L (137-145); Total Bilirubin 0.7 mg/dL (0.2-1.3); Total Protein 7.8 g/dL (6.3-8.2)
--- NOTE | 2022-02-19 11:07 | P.HP ---
Psychiatric H&P - . H&P Date: 02/19/22 History & Physical: Allergies Allergy/AdvReac Type Severity Reaction Status Date / Time No Known Allergies Allergy Verified 02/18/22 14:29 Vital Signs Temp 97.5 F L 02/19/22 01:20 Pulse 107 H 02/19/22 01:20 Resp 14 02/19/22 01:20 BP 134/68 02/19/22 01:20 Pulse Ox 98 02/18/22 14:24 FiO2 Intake & Output 02/18/22 02/19/22 02/19/22 18:59 06:59 18:59 Weight 104.78 kg Laboratory Last Values WBC 5.5 k/uL (3.8-10.6) 02/19/22 08:59 RBC 5.57 m/uL (4.30-5.90) 02/19/22 08:59 Hgb 16.9 gm/dL (13.0-17.5) 02/19/22 08:59 Hct 50.1 % (39.0-53.0) 02/19/22 08:59 MCV 89.9 fL (80.0-100.0) 02/19/22 08:59 MCH 30.4 pg (25.0-35.0) 02/19/22 08:59 MCHC 33.8 g/dL (31.0-37.0) 02/19/22 08:59 RDW 12.6 % (11.5-15.5) 02/19/22 08:59 Plt Count 245 k/uL (150-450) 02/19/22 08:59 MPV 7.5 02/19/22 08:59 Neutrophils % 70 % 02/19/22 08:59 Lymphocytes % 22 % 02/19/22 08:59 Monocytes % 6 % 02/19/22 08:59 Eosinophils % 1 % 02/19/22 08:59 Basophils % 1 % 02/19/22 08:59 Neutrophils # 3.9 k/uL (1.3-7.7) 02/19/22 08:59 Lymphocytes # 1.2 k/uL (1.0-4.8) 02/19/22 08:59 Monocytes # 0.3 k/uL (0-1.0) 02/19/22 08:59 Eosinophils # 0.1 k/uL (0-0.7) 02/19/22 08:59 Basophils # 0.0 k/uL (0-0.2) 02/19/22 08:59 Sodium 138 mmol/L (137-145) 02/19/22 08:59 Potassium 4.2 mmol/L (3.5-5.1) 02/19/22 08:59 Chloride 102 mmol/L (98-107) 02/19/22 08:59 Carbon Dioxide 26 mmol/L (22-30) 02/19/22 08:59 Anion Gap 10 mmol/L 02/19/22 08:59 BUN 9 mg/dL (9-20) 02/19/22 08:59 Creatinine 1.07 mg/dL (0.66-1.25) 02/19/22 08:59 Est GFR (CKD-EPI)AfAm >90 (>60 ml/min/1.73 sqM) 02/19/22 08:59 Est GFR (CKD-EPI)NonAf >90 (>60 ml/min/1.73 sqM) 02/19/22 08:59 Glucose 94 mg/dL (74-99) 02/19/22 08:59 Calcium 9.2 mg/dL (8.4-10.2) 02/19/22 08:59 Total Bilirubin 0.7 mg/dL (0.2-1.3) 02/19/22 08:59 Conjugated Bilirubin 0.0 mg/dL (0.0-0.3) 02/19/22 08:59 Unconjugated Bilirubin 0.3 mg/dL (0.0-1.1) 02/19/22 08:59 Delta Bilirubin 0.4 mg/dL (0.0-0.2) H 02/19/22 08:59 AST 25 U/L (17-59) 02/19/22 08:59 ALT 19 U/L (4-49) 02/19/22 08:59 Alkaline Phosphatase 82 U/L (38-126) 02/19/22 08:59 Total Protein 7.8 g/dL (6.3-8.2) 02/19/22 08:59 Albumin 4.6 g/dL (3.5-5.0) 02/19/22 08:59 TSH 0.250 mIU/L (0.465-4.680) L 02/19/22 08:59 Urine Opiates Screen Not Detected (NotDetected) 02/18/22 16:35 Ur Oxycodone Screen Not Detected (NotDetected) 02/18/22 16:35 Urine Methadone Screen Not Detected (NotDetected) 02/18/22 16:35 Ur Propoxyphene Screen Not Detected (NotDetected) 02/18/22 16:35 Ur Barbiturates Screen Not Detected (NotDetected) 02/18/22 16:35 U Tricyclic Antidepress Not Detected (NotDetected) 02/18/22 16:35 Ur Phencyclidine Scrn Not Detected (NotDetected) 02/18/22 16:35 Ur Amphetamines Screen Not Detected (NotDetected) 02/18/22 16:35 U Methamphetamines Scrn Not Detected (NotDetected) 02/18/22 16:35 U Benzodiazepines Scrn Not Detected (NotDetected) 02/18/22 16:35 Urine Cocaine Screen Not Detected (NotDetected) 02/18/22 16:35 U Marijuana (THC) Screen Detected (NotDetected) H 02/18/22 16:35 Coronavirus (PCR) Not Detected (Not Detectd) 02/18/22 19:31 02/19/22 10:59 IDENTIFYING DATA: Patient is a 21-year-old -Spanish male with a significant history of schizophrenia and cannabis use disorder who was brought in by police under petition for mental health treatment HPI: Patient presented to the hospital yesterday brought in by police with a petition by the sheriff detective stating "this is my second petition of July 16. He was very irate today said he won't take his medications. He believes people are out to kill him. Jessica Valencia states he is both suicidal and homicidal". The petition also states that "patient's grandmother states she Erik stopped taking his medications. He is not sleeping or eating. He makes comments he wants to harm other people and that he wore out to kill him". Patient was admitted involuntarily to the mental health unit. Patient was just discharged on 02/11/2022 from the mental health unit and has a history of schizophrenia. Patient at that time was given Haldol D1 100 mg IM. Patient was seen laying in his bed today and appeared to be lethargic. He continues to make bizarre statements and was endorsing paranoia. He was rambling at times. He had poor reality testing during the interview. He claims that he stopped taking his medi cations because "I didn't like it". He also was fairly vague and guarded about his cannabis use. He states that "I'm doing good now" since being in the hospital. He claims that he was taking his metformin at home. He states that his mood is "fine". He did speak about "seeing spirits and was afraid to sleep". He claims that "someone gave me a demon in a long time ago". he was illogical and had loose associations during conversation. He does admit to cigarette use. His UDS was positive for marijuana. PAST PSYCHIATRIC HISTORY: Patient has previous diagnosis of schizophrenia and nicotine dependence and cannabis abuse. The patient was proved to prescribe Invega Sustenna and Depakote. She was most recently transitioned onto Haldol D1 100 mg IM and last dose was given on 02/10 and was supposed to be due in 228 days. She was also on trazodone. He was last hospitalized on our psychiatric unit one week ago. He also has a previous admission at [facility] in 2019. Patient denies any psychiatric outpatient follow-up. He denies any suicidal attempts in the past. PMH: Past Medical History: Thyroid Disorder Additional Past Medical History / Comment(s): L thyroid nodule <1 CM, ? par athyroid problem History of Any Multi-Drug Resistant Organisms: None Reported Past Surgical History: No Surgical Hx Reported Past Anesthesia/Blood Transfusion Reactions: No Reported Reaction Additional Past Anesthesia/Blood Transfusion Reaction / Comment(s): Pt has never had surgery Past Psychological History: ADD/ADHD Smoking Status: Light tobacco smoker Past Alcohol Use History: Occasional Past Drug Use History: Marijuana, Prescription Drug Abuse ALLERGIES: NO KNOWN DRUG ALLERGIES CHEMICAL DEPENDENCY HISTORY: As per HPI FAMILY PSYCHIATRIC/SUBSTANCE USE HISTORY: Unable to assess. SOCIAL HISTORY: Patient reports that he was born and raised in [place]. He was recently incarcerated this past June for domestic violence towards his grandmother. He vehemently denies any access to firearms or other weapons. MENTAL STATUS EXAM: General Appearance: Patient appears to be stated age is lethargic, difficult to direct but attempts to cooperate. Bizarre. Paranoid. Patient appears to have poor hygiene and grooming. Behavior: Patient is laying in bed, vague, bizarre. Speech: Patient's speech is pressured, hyperverbal, tangential. Mood/Affect: Patient reports their mood is "alright" affect is congruent Suicidality/Homicidality: Patient endorses homicidal ideation. No suicidal ideation endorsed to this provider. Perceptions: Patient denies any visual hallucinations and denies any auditory hallucinations over did state that he was seeing spirits before. Though content/process: Patient presents with a flight of ideas and paranoid delusions. Bizarre and illogical. Memory and concentration: AOX3, grossly intact for the purposes of this session. Concentration appears to be poor. Judgment and insight: Poor. STRENGTHS/WEAKNESSES: Strength is that the patient presented in relatively good health. Weakness that the patient has very poor insight and judgment. INTELLECT: average IMPRESSIONS: Schizophrenia Noncompliance of medications. Cannabis use disorder Nicotine dependence PLAN: -Patient is admitted under involuntary status to MHU for stabilization of psychiatric symptoms and safety. A second certification was completed and along with petition will be filed for court. -Medications : Will start patient on Haldol 10 mg qhs for psychosis, trazodone 100 mg qhs for insomnia. -Ativan and thorazine PRN for agitation/aggression -Patient refused to participate in the informed consent conversation. -Internal Medicine consult to perform medical evaluation and physical. -SW on board for discharge planning. Encourage patient to participate in groups to work on coping skills. will await court and deferral date.
[2022-02-19 20:56] LABS: Chol/HDL Ratio 3.07 Ratio; VLDL Calculation 13.02 mg/dL (5.00-40.00)
--- NOTE | 2022-02-19 23:36 | P.CONS ---
History of Present Illness - Reason for Consult Consult date: 02/19/22 - History of Present Illness The patient is a 21-year-old male with a PMH of type II DM, polysubstance abuse, tobacco abuse who presents to the emergency room under police custody for disorganized thought extremities behavior. The patient was admitted to the mental health unit where he was seen and evaluated. The patient reports using a variety of different illicit substances including fentanyl, and marijuana. He also reports drinking as much as a fifth of hard liquor daily as well as multiple cans of red bull. He denied any active complaints at the time of interview. He denied experiencing chest discomfort, shortness of breath, fever, chills, cough, nausea, vomiting, abdominal pain, diarrhea. Laboratory kortney luation was remarkable for TSH 0.250 with urine toxicology positive for marijuana. Review of systems: Pertinent positives and negatives as discussed in HPI, a complete review of systems was performed and all other systems are negative. Physical examination: General: non toxic, no distress, appears at stated age, obese Derm: no unusual rashes/lesions, no unusual ecchymoses, warm, dry Head: atraumatic, normocephalic, symmetric Eyes: EOMI, no lid lag, anicteric sclera ENT: Nose and ears atraumatic, no thrush, no pharyngeal erythema Neck: trachea midline, supple Mouth: no lip lesion, mucus membranes moist Cardiovascular: S1S2 reg, no murmur, no edema Lungs: CTA bilateral, no rhonchi, no rales , no accessory muscle use Abdominal: soft, nontender to palpation, no guarding Ext: no gross muscle atrophy, no contractures, Neuro: No gross focal neuro deficits noted Psych: Alert, oriented, pressured speech, disorganized thought process Assessment/plan Polysubstance abuse -Strongly advised on importance of cessation Low TSH -Check T3 and T4 levels Psychosis -As per psychiatry Thank you for allowing us to participate in the care of this patient. We will follow peripherally. Do not hesitate to contact us with questions. Someone can be reached from the [facility] hospitalist group at all hours of the day at [phone]. Past Medical History Past Medical History: Thyroid Disorder Additional Past Medical History / Comment(s): L thyroid nodule <1 CM, ? parathyroid problem History of Any Multi-Drug Resistant Organisms: None Reported Past Surgical History: No Surgical Hx Reported Past Anesthesia/Blood Transfusion Reactions: No Reported Reaction Additional Past Anesthesia/Blood Transfusion Reaction / Comm: Pt has never had surgery Past Psychological History: ADD/ADHD Smoking Status: Light tobacco smoker Past Alcohol Use History: Occasional Past Drug Use History: Marijuana, Prescription Drug Abuse - Past Family History Mother Additional Family Medical History / Comment(s): ADHD Father Family Medical History: No Reported History Additional Family Medical History / Comment(s): Father is healthy grandfather Family Medical History: Diabetes Mellitus Medications and Allergies Home Medications Medication Instructions Recorded Confirmed Type Haloperidol Decanoate [Haldol D] 100 mg IM QMONTHLY #1 each 02/11/22 02/18/22 Rx Nicotine 14Mg/24Hr Patch [Habitrol] 1 patch TRANSDERM DAILY 15 Days 02/11/22 02/18/22 Rx patch haloperidoL [Haldol] 10 mg PO HS 5 Days #5 tab 02/11/22 02/18/22 Rx metFORMIN HCL [Glucophage] 500 mg PO BID-W/MEALS 30 Days tab 02/11/22 02/18/22 Rx traZODone HCL [Desyrel] 100 mg PO HS 15 Days tab 02/11/22 02/18/22 Rx Allergies Allergy/AdvReac Type Severity Reaction Status Date / Time No Known Allergies Allergy Verified 02/18/22 14:29 Physical Exam Vitals: Vital Signs Temp Pulse Resp BP 02/19/22 01:20 97.5 F L 107 H 14 134/68 Results CBC & Chem 7: 02/19/22 08:59 02/19/22 08:59 Labs: Abnormal Lab Results - Last 24 Hours (Table) 02/19/22 Range/Units 08:59 Delta Bilirubin 0.4 H (0.0-0.2) mg/dL TSH 0.250 L (0.465-4.680) mIU/L
[2022-02-20] MEDS: metFORMIN 500 MG TAB PO SCH ×2 (07:56→17:00)
[2022-02-20] MEDS: NICOTINE 14MG/24HR PATCH TRANSDERM SCH (07:57)
--- NOTE | 2022-02-20 16:58 | P.PN ---
Progress Note - Text Progress Note Date: 02/20/22 Interval History: Patient was seen pacing the hallways, is intrusive, religiously preoccupied, not sleeping at night (reports he slept 1.5 hours last night), is often peering into the psychiatrist's office through the window. The unit nurse reports patient was found today with a toothbrush that he was sharpening the end into a weapon and has been placed on precautions. On my evaluation today, patient appears manic and psychotic. His mood is elevated, reports his mood is "great", he is laughing and smiling inappropriately, is hyperactive and somewhat grandiose. He reports a family history of bipolar disorder in the "Cor[place]'s and [place]'s". He reports he was previously on Depakote and is refusing to start it today. He has not been on [place] before. He was previously on Risperdal. He does not appear to be a reliable historian. He endorses visual hallucinations of "spirits". He denies auditory hallucinations but does appear to be attending to internal stimuli at times. At this time, patient denies any suicidal or homicidal ideation, intent or plan. Patient denies any side effects from the medications and has been compliant with meds. Mental Status Exam: General Appearance: Patient appears to be stated age, fair hygiene, hair long. Behavior: Patient is hyperactive and intrusive, pacing the hallways. He was found by the nurse sharpening a toothbrush. Speech: Patient's speech is rapid/somewhat pressured. Mood/Affect: Mood is elevated "great", affect is expansive. Suicidality/Homicidality: Patient denies having any suicidal or homicidal ideation intent or plan. Perceptions: Patient endorses visual hallucinations, and he denies auditory hallucinations but there is concern he is attending to internal stimuli. Though content/process: There is evidence of any delusional thought content and thought process is flight of ideas/restorationism preoccupation. Memory and concentration: AOX3, grossly intact for the purposes of this session Judgment and insight: Poor Assessment Schizoaffective disorder, bipolar type Cannabis use disorder Nicotine dependence/tobacco use disorder Noncompliance with treatment Plan: -Patient continues to meet criteria for inpatient psychiatric admission for symptom stabilization and safety. A second certification has been filed for the court. - Medications: Start [place] 300 mg TID for waldemar. Check [place] level on Wednesday. Continue Haldol 10 mg po QHS for psychosis Discontinue Trazodone 100 mg QHS for insomnia. Start Ambien 10 mg QHS PRN for insomnia. -When necessary Ativan and Haldol for agitation/aggression. -NRT - nicotine patch -SW on board for discharge planning. Encouraged the patient to participate in [place].
[2022-02-20] MEDS: LITHIUM CARBONATE 300 MG CAP PO SCH ×2 (17:00→22:03)
[2022-02-20] MEDS: haloperidoL 5 MG TAB PO SCH (22:02)
[2022-02-21] MEDS: LITHIUM CARBONATE 300 MG CAP PO SCH ×3 (08:26→22:22)
[2022-02-21] MEDS: NICOTINE 14MG/24HR PATCH TRANSDERM SCH (08:26)
[2022-02-21] MEDS: metFORMIN 500 MG TAB PO SCH ×2 (08:26→20:25)
--- NOTE | 2022-02-21 17:45 | P.PN ---
Progress Note - Text Progress Note Date: 02/21/22 Interval History: Patient was seen exiting group and was agreeable to speak with television writer. He appears a bit less hyperactive today since starting [place] 300 mg TID yesterday, however he continues to be manic with grandiose ideations, elevated mood, increased energy, laughing/smiling inappropriately, impulsive, intrusive. His sleep improved last night to about 5 hours without Ambien since starting the [place] yesterday. At this time, patient denies any suicidal or homicidal ideation, intent or plan. Patient denies any auditory or visual hallucinations. Patient denies any side effects from the medications and has been compliant with meds. Mental Status Exam: General Appearance: Patient appears to be stated age, hair long with dreads, fair hygiene. Behavior: Patient presents with high energy, animated. Speech: Patient's speech is fluent and rapid. Mood/Affect: Mood is elevated, affect is expansive. Suicidality/Homicidality: Patient denies having any suicidal or homicidal ideation intent or plan. Perceptions: Patient denies any visual hallucinations and denies any auditory hallucinations. Though content/process: There is evidence of any grandiose delusional thought content and thought process is a bit disorganized. Memory and concentration: AOX3, grossly intact for the purposes of this session Judgment and insight: Improving mildly Assessment: Schizoaffective disorder, bipolar type Cannabis use disorder Nicotine dependence/tobacco use disorder History of noncompliance with treatment Plan: -Patient continues to meet criteria for inpatient psychiatric admission for symptom stabilization and safety. A second certification has been filed for the court. -Medications: Continue [place] 300 mg TID for waldemar. Check [place] level on Wednesday - ordered. Continue Haldol 10 mg po QHS for psychosis. Haldol decanoate 100 mg IM was given on 02/10/22 and patient would like to continue the injection. Short term use of Ambien 10 mg QHS PRN for insomnia is ordered. -When necessary Ativan and Haldol for agitation/aggression. -NRT - nicotine patch -SW on board for discharge planning. Encouraged the patient to participate in milieu.
[2022-02-21] MEDS: haloperidoL 5 MG TAB PO SCH (22:22)
[2022-02-22] MEDS: NICOTINE 14MG/24HR PATCH TRANSDERM SCH (08:27)
[2022-02-22] MEDS: LITHIUM CARBONATE 300 MG CAP PO SCH ×3 (08:27→23:25)
[2022-02-22] MEDS: metFORMIN 500 MG TAB PO SCH ×2 (08:27→18:25)
--- NOTE | 2022-02-22 21:51 | P.PN ---
Progress Note - Text Progress Note Date: 02/22/22 Interval History: Patient was seen at the nurse's station talking to staff and was agreeable to speak with functional tester typewriters. He continues to be manic with high energy, elevated mood, animated behaviors, rapid speech, but is showing improvement since he started [place] 300 mg TID. His sleep improved last night to about 7 hours without Ambien. At this time, patient denies any suicidal or homicidal ideation, intent or plan. Patient denies any auditory or visual hallucinations. Patient denies any side effects from the medications and has been compliant with meds. Mental Status Exam: General Appearance: Patient appears to be stated age, hair long with dreads, fair hygiene. Behavior: Patient presents with high energy, animated. Speech: Patient's speech is fluent and rapid, but not pressured. Mood/Affect: Mood is elevated, affect is blunted. Suicidality/Homicidality: Patient denies having any suicidal or homicidal ideation intent or plan. Perceptions: Patient denies any visual hallucinations and denies any auditory hallucinations. Though content/process: There is evidence of any grandiose delusional thought content and thought process is becoming more linear. Memory and concentration: AOX3, grossly intact for the purposes of this session Judgment and insight: Improving mildly Assessment: Schizoaffective disorder, bipolar type Cannabis use disorder Nicotine dependence/tobacco use disorder History of noncompliance with treatment Plan: -Patient continues to meet criteria for inpatient psychiatric admission for symptom stabilization and safety. A second certification has been filed for the court. -Medications: Continue [place] 300 mg TID for waldemar. Check [place] level on Wednesday - ordered. Continue Haldol 10 mg po QHS for psychosis. Haldol decanoate 100 mg IM was given on 02/10/22 and patient would like to continue the injection. Short term use of Ambien 10 mg QHS PRN for insomnia is ordered. -When necessary Ativan and Haldol for agitation/aggression. -NRT - nicotine patch -SW on board for discharge planning. Encouraged the patient to participate in milieu.
[2022-02-22] MEDS: haloperidoL 5 MG TAB PO SCH (23:25)
[2022-02-22] MEDS: ZOLPIDEM 5 MG TAB PO PRN (23:40)
[2022-02-23] MEDS: metFORMIN 500 MG TAB PO SCH ×2 (09:05→21:06)
[2022-02-23] MEDS: NICOTINE 14MG/24HR PATCH TRANSDERM SCH (09:05)
[2022-02-23] MEDS: LITHIUM CARBONATE 300 MG CAP PO SCH ×3 (09:05→21:06)
--- NOTE | 2022-02-23 14:29 | P.PN ---
Progress Note - Text Progress Note Date: 02/23/22 Interval History: Patient was seen attending group today and was agreeable to speak with commercial lines underwriter. He continues to have features of waldemar including elevated mood, animated behaviors, rapid speech, but is showing improvement since he started [place] 300 mg TID. His slept about 5 hours with Ambien last night. At this time, patient denies any suicidal or homicidal ideation, intent or plan. Patient denies any auditory or visual hallucinations. Patient denies any side effects from the medications and has been compliant with meds. Mental Status Exam: General Appearance: Patient appears to be stated age, hair long with dreads, fair hygiene. Behavior: Patient presents with animated behaviors but is directable and not agitated. Speech: Patient's speech is fluent and rapid, but not pressured. Mood/Affect: Mood is elevated, affect is blunted. Suicidality/Homicidality: Patient denies having any suicidal or homicidal ideation intent or plan. Perceptions: Patient denies any visual hallucinations and denies any auditory hallucinations. Though content/process: There is evidence of grandiose delusional thought content and thought process is becoming more linear. Memory and concentration: AOX3, grossly intact for the purposes of this session Judgment and insight: Improving mildly Assessment: Schizoaffective disorder, bipolar type Cannabis use disorder Nicotine dependence/tobacco use disorder History of noncompliance with treatment Plan: -Patient continues to meet criteria for inpatient psychiatric admission for symptom stabilization and safety. A second certification has been filed for the court. -Medications: Continue [place] 300 mg TID for waldemar. Check [place] level on Wednesday - ordered. Continue Haldol 10 mg po QHS for psychosis. Haldol decanoate 100 mg IM was given on 02/10/22 and patient would like to continue the injection. Short term use of Ambien 10 mg QHS PRN for insomnia is ordered. -When necessary Ativan and Haldol for agitation/aggression. -NRT - nicotine patch -SW on board for discharge planning. Encouraged the patient to participate in milieu.
[2022-02-23] MEDS ORDERED: HALOPERIDOL LACTATE 5 MG/ML 1 ML VIAL IM ONE (15:17)
[2022-02-23] MEDS ORDERED: LORazepam 2 MG/ML INJ IM ONE (15:18)
[2022-02-23] MEDS: haloperidoL 5 MG TAB PO SCH (21:06)
[2022-02-23] MEDS: ACETAMINOPHEN TAB 325 MG TAB PO PRN (21:07)
[2022-02-23] MEDS: ZOLPIDEM 5 MG TAB PO PRN (22:31)
[2022-02-24] MEDS: ACETAMINOPHEN TAB 325 MG TAB PO PRN (07:07)
[2022-02-24] MEDS: metFORMIN 500 MG TAB PO SCH ×2 (08:13→18:02)
[2022-02-24] MEDS: LITHIUM CARBONATE 300 MG CAP PO SCH (08:13)
[2022-02-24] MEDS: NICOTINE 14MG/24HR PATCH TRANSDERM SCH (08:14)
--- NOTE | 2022-02-24 11:10 | P.PN ---
Progress Note - Text Progress Note Date: 02/24/22 Interval History: Patient was seen attending group and was directable and agreeable to speak with data analyst report writer in the office. She reports that he is sorry for his actions yesterday. He understands that his agitation got the better of him. He reports that he is just feeling frustrated with his length of stay. He is able to acknowledge that his length of stay this hospital is never as bad as his previous length of stay at [employer] [facility]. He is currently denying any suicidal or homicidal ideation, intention, and/or plan. He is not reporting any auditory or visual hallucinations. He denies any paranoia or other delusions. He has been adherent with his medication and is not endorsing any significant side effects. When informed that he would not be discharged today, the patient expressed disappointment however was able to keep his frustration under control. Mental Status Exam: General Appearance: Patient appears to be stated age is alert, directable, and cooperative. Behavior: Patient is calmly seated without any agitated behavior. Eye contact is appropriate. Speech: Patient's speech is fluent and nonpressured. Interruptible, linear, with normal volume. Mood/Affect: Mood is improving mildly, affect is congruent and euthymic. Suicidality/Homicidality: Patient denies having any suicidal or homicidal ideation intent or plan. Perceptions: Patient denies any visual hallucinations and denies any auditory hallucinations Though content/process: There is no evidence of any delusional thought content and thought process is linear and goal-directed. Memory and concentration: AOX3, grossly intact for the purposes of this session Judgment and insight: Improving mildly Vital Signs Temp 97.9 F 02/24/22 07:03 Pulse 102 H 02/24/22 07:03 Resp 18 02/24/22 07:03 BP 129/66 02/24/22 07:03 Pulse Ox 94 L 02/24/22 07:03 FiO2 Laboratory Results - Last 24 Hours 02/24/22 06:24 Bird-In-Hand 0.5 Assessment Schizoaffective disorder, bipolar type Cannabis use disorder Tobacco use disorder History of noncompliance with treatment Plan: -Patient continues to meet criteria for inpatient psychiatric admission for symptom stabilization and safety. Patient has signed adult voluntary form and medication consent and was placed in patient's chart. -Medications: Bird-In-Hand level 0.5. Increase lithium to 450 mg in the morning and 600 at bedtime. Continue Haldol 10 mg po QHS for psychosis. Haldol decanoate 100 mg IM was given on 02/10/22 and patient would like to continue the injection. Short term use of Ambien 10 mg QHS PRN for insomnia is ordered. -When necessary Ativan and Haldol for agitation/aggression. -NRT - nicotine patch -SW on board for discharge planning. Encouraged the patient to participate in milieu.
[2022-02-24] MEDS ORDERED: LITHIUM CARBONATE 300 MG CAP PO SCH (21:00)
[2022-02-24] MEDS: haloperidoL 5 MG TAB PO SCH (23:02)
[2022-02-24] MEDS: ZOLPIDEM 5 MG TAB PO PRN (23:43)
[2022-02-25 07:10] VITALS: BP 136/70; PULSE 97; RESP 16; TEMP 97.5
[2022-02-25] MEDS: metFORMIN 500 MG TAB PO SCH (08:42)
[2022-02-25] MEDS: NICOTINE 14MG/24HR PATCH TRANSDERM SCH (08:42)
[2022-02-25] MEDS ORDERED: LITHIUM CARBONATE 150 MG CAP PO SCH (09:00)
--- NOTE | 2022-02-25 11:48 | P.DS ---
Providers Date of admission: 02/18/22 21:20 Expected date of discharge: 02/25/22 Attending physician: Shashi Genao MD Consults: 02/18/22 21:22 Consult Physician Routine Consulting Provider: Sena Billingsley Consult Reason/Comments: Medical H&P Do you want consulting provider notified?: Yes Primary care physician: Stated None - Discharge Diagnosis(es) (1) Schizoaffective disorder, bipolar type Current Visit: Yes Status: Acute Priority: High (2) Cannabis use disorder Current Visit: Yes Status: Chronic Priority: Medium (3) Tobacco use disorder Current Visit: Yes Status: Chronic Priority: Medium (4) Noncompliance with treatment Current Visit: Yes Status: Chronic Priority: Low Hospital Course: Admission HPI: Initial psychiatric evaluation was completed by Dr. Garcia on 02/19/2022 who wrote: " Patient is a 21-year-old -Prydeinig male with a significant history of schizophrenia and cannabis use disorder who was brought in by police under pe tition for mental health treatment HPI: Patient presented to the hospital yesterday brought in by police with a petition by the deputy general counsel stating "this is my second petition of July 16. He was very irate today said he won't take his medications. He believes people are out to kill him. Jessica Valencia states he is both suicidal and homicidal". The petition also states that "patient's grandmother states she Erik stopped taking his medications. He is not sleeping or eating. He makes comments he wants to harm other people and that he wore out to kill him". Patient was admitted involuntarily to the mental health unit. Patient was just discharged on 02/11/2022 from the mental health unit and has a history of schizophrenia. Patient at that time was given Haldol D1 100 mg IM. Patient was seen laying in his bed today and appeared to be lethargic. He continues to make bizarre statements and was endorsing paranoia. He was rambling at times. He had poor reality testing during the interview. He claims that he stopped taking his medications because "I didn't like it". He also was fairly vague and guarded about his cannabis use. He states that "I'm doing good now" since being in the hospital. He claims that he was taking his metformin at home. He states that his mood is "fine". He did speak about "seeing spirits and was afraid to sleep". He claims that "someone gave me a demon in a long time ago". he was illogical and had loose associations during conversation. He does admit to cigarette use. His UDS was positive for marijuana. Patient has previous diagnosis of schizophrenia and nicotine dependence and cannabis abuse. The patient was proved to prescribe Invega Sustenna and Depakote. She was most recently transitioned onto Haldol D1 100 mg IM and last dose was given on 02/10 and was supposed to be due in 228 days. She was also on trazodone. He was last hospitalized on our psychiatric unit one week ago. He also has a previous admission at [facility] in 2019. Patient denies any psychiatric outpatient follow-up. He denies any suicidal attempts in the past." Hospital course: Upon admission to the unit patient was initially noted to be lethargic however e ndorsing severe paranoia and bizarre behavior. Patient was however directable and agreeable to commence treatment. Patient got along well with other patients on the unit and followed unit protocol. Patient was compliant with the medications and denied any side effects throughout hospital course. Patient was started on Haldol 10 mg at bedtime for psychosis and trazodone 100 mg for insomnia. Patient spoke of his stressors and engaged in therapy both group and individual. Patient was also seen by medical team for history and physical exam. The patient would have intermittent episodes of insomnia and therefore Ambien was added to his regimen. Furthermore, due to mood lability and spiritism preoccupation, lithium was added to his regimen. On 02/23/2022, the patient became very agitated when he was informed that he would not be discharge. He requested administration of IM medications in order to calm down. The following day however, the patient was much more cooperative and polite. He displayed a better control of his emotions and outbursts. He is much more redirectable. The patient's lithium was 0.5 and therefore increased to 450 mg in the morning and 600 mg at bedtime. On the day of discharge, the patient is not reporting any suicidal or homicidal ideation, intention, and/or plan. He is not reporting any auditory or visual hallucinations. He is denying any paranoia or other delusions. He has been adherent with his medication and is not endorsing any significant side effects. The patient was counseled lengthening on the importance of medication adherence and appropriate outpatient follow-up. The patient vehemently states that he will follow up with [facility] and take his medications as directed. He was also counseling from the importance of abstaining from all substances including alcohol, tobacco, marijuana, and illicit drugs. As the patient no longer presented with criteria for inpatient psychiatric admission, he was subsequently discharged. Mental status exam: General Appearance: Patient appears to be stated age is alert, pleasant, and cooperative. Patient is in no acute distress and has fair hygiene and grooming Behavior: Patient is calmly seated without any agitated behavior. Speech: Patient's speech is fluent and nonpressured. Mood/Affect: Patient reports their mood is "much better", affect is congruent and euthymic to bright. Suicidality/Homicidality: Patient denies having any suicidal or homicidal ideation intent or plan. Perceptions: Patient denies any auditory or visual hallucinations. Though content/process: There is no evidence of any delusional thought content and thought process is linear and goal-directed. He is future oriented. Memory and concentration: AOX3, grossly intact for the purposes of this session. Can spell "WORLD" backwards correctly. Judgment and insight: Improved with guarded prognosis Impression: Schizoaffective disorder, bipolar type Cannabis use disorder Tobacco use disorder History of noncompliance with treatment Plan: -Continue with discharge today as patient has improved and stabilized psychiatrically and is not currently an imminent threat to himself and/or others. Patient will remain at chronically elevated risk for harm to self and/or others due to his impulsivity and nonadherence with treatment. -Continue medications: Ambien 10 mg by mouth at bedtime when necessary for insomnia for 7 days Haldol 10 mg by mouth at bedtime for schizoaffective disorder. Patient received Haldol Decanoate 100 mg IM on 02/10/2022. Next dose due on 03/10/2022. We will defer to [facility] on increasing frequency of IM Haldol for better control of symptoms. Parker Strip 450 mg by mouth every morning and 600 mg by mouth daily at bedtime for mood stabilization -Patient was counseled on the need for medication compliance and appropriate follow-up at mental health and also primary care for medical issues. Patient verbalized understanding and agreed. -Social work to arrange for and conduct family meeting to ensure safety upon discharge and answer any questions/concerns. Social work also to arrange for patients follow up appointments with [facility] for psychiatric care along with follow up with primary care provider. -Patient counseled on abstaining from recreational drugs and marijuana and alcohol. Was informed/educated on the adverse effects on their physical and mental health. Patient verbally agreed and understood. -Patient was instructed to return to the hospital or seek immediate medical care if their psychiatric or medical symptoms do worsen or reoccur. -Psychoeducation and supportive therapy provided to patient. Risks and benefits of pharmacological treatment versus the risks and benefits of nontreatment weight and discussed. Informed consent discussion held. Common side effects of psychotropics discussed such as, but not limited to headache, GI disturbance, sexual dysfunction, movement disorders, sedation, and orthostatic hypotension. Life threatening and blackbox warnings of prescribed medications also discussed. Potential risks of operating a vehicle or heavy machinery discussed with patient at length. Advised on importance of compliance and a reliable and responsible manner. Patient advised to review FDA consumer labeling of all medications prior to taking. Patient verbalized understanding of potential risks, and agrees with current treatment plan. Patient advised to medically contact physician/emergency personnel if any acute changes in condition occur. Vital Signs Temp 97.5 F L 02/25/22 06:02 Pulse 97 02/25/22 06:02 Resp 16 02/25/22 06:02 BP 136/70 02/25/22 06:02 Pulse Ox 94 L 02/24/22 07:03 FiO2 Laboratory Results WBC 5.5 k/uL (3.8-10.6) 02/19/22 08:59 RBC 5.57 m/uL (4.30-5.90) 02/19/22 08:59 Hgb 16.9 gm/dL (13.0-17.5) 02/19/22 08:59 Hct 50.1 % (39.0-53.0) 02/19/22 08:59 MCV 89.9 fL (80.0-100.0) 02/19/22 08:59 MCH 30.4 pg (25.0-35.0) 02/19/22 08:59 MCHC 33.8 g/dL (31.0-37.0) 02/19/22 08:59 RDW 12.6 % (11.5-15.5) 02/19/22 08:59 Plt Count 245 k/uL (150-450) 02/19/22 08:59 MPV 7.5 02/19/22 08:59 Neutrophils % 70 % 02/19/22 08:59 Lymphocytes % 22 % 02/19/22 08:59 Monocytes % 6 % 02/19/22 08:59 Eosinophils % 1 % 02/19/22 08:59 Basophils % 1 % 02/19/22 08:59 Neutrophils # 3.9 k/uL (1.3-7.7) 02/19/22 08:59 Lymphocytes # 1.2 k/uL (1.0-4.8) 02/19/22 08:59 Monocytes # 0.3 k/uL (0-1.0) 02/19/22 08:59 Eosinophils # 0.1 k/uL (0-0.7) 02/19/22 08:59 Basophils # 0.0 k/uL (0-0.2) 02/19/22 08:59 Sodium 138 mmol/L (137-145) 02/19/22 08:59 Potassium 4.2 mmol/L (3.5-5.1) 02/19/22 08:59 Chloride 102 mmol/L (98-107) 02/19/22 08:59 Carbon Dioxide 26 mmol/L (22-30) 02/19/22 08:59 Anion Gap 10 mmol/L 02/19/22 08:59 BUN 9 mg/dL (9-20) 02/19/22 08:59 Creatinine 1.07 mg/dL (0.66-1.25) 02/19/22 08:59 Est GFR (CKD-EPI)AfAm >90 (>60 ml/min/1.73 sqM) 02/19/22 08:59 Est GFR (CKD-EPI)NonAf >90 (>60 ml/min/1.73 sqM) 02/19/22 08:59 Glucose 94 mg/dL (74-99) 02/19/22 08:[address] Glu mg/dL 108 02/19/22 08:59 Hemoglobin A1c 5.4 % (0.0-6.0) 02/19/22 08:59 Calcium 9.2 mg/dL (8.4-10.2) 02/19/22 08:59 Total Bilirubin 0.7 mg/dL (0.2-1.3) 02/19/22 08:59 Conjugated Bilirubin 0.0 mg/dL (0.0-0.3) 02/19/22 08:59 Unconjugated Bilirubin 0.3 mg/dL (0.0-1.1) 02/19/22 08:59 Delta Bilirubin 0.4 mg/dL (0.0-0.2) H 02/19/22 08:59 AST 25 U/L (17-59) 02/19/22 08:59 ALT 19 U/L (4-49) 02/19/22 08:59 Alkaline Phosphatase 82 U/L (38-126) 02/19/22 08:59 Total Protein 7.8 g/dL (6.3-8.2) 02/19/22 08:59 Albumin 4.6 g/dL (3.5-5.0) 02/19/22 08:59 Triglycerides 65.10 mg/dL (0.00-149.00) 02/19/22 08:59 Cholesterol 132.00 mg/dL (0.00-200.00) 02/19/22 08:59 LDL Cholesterol, Calc 76.0 mg/dL (0.0-131.0) 02/19/22 08:59 VLDL Cholesterol, Calc 13.02 mg/dL (5.00-40.00) 02/19/22 08:59 HDL Cholesterol 43.00 mg/dL (40.00-60.00) 02/19/22 08:59 Cholesterol/HDL Ratio 3.07 Ratio 02/19/22 08:59 TSH 0.250 mIU/L (0.465-4.680) L 02/19/22 08:59 Free T4 1.550 ng/dL (0.800-1.800) 02/19/22 08:59 Total T3 98.2 ng/dL (60.0-180.0) 02/19/22 08:59 Urine Opiates Screen Not Detected (NotDetected) 02/18/22 16:35 Ur Oxycodone Screen Not Detected (NotDetected) 02/18/22 16:35 Urine Methadone Screen Not Detected (NotDetected) 02/18/22 16:35 Ur Propoxyphene Screen Not Detected (NotDetected) 02/18/22 16:35 Ur Barbiturates Screen Not Detected (NotDetected) 02/18/22 16:35 U Tricyclic Antidepress Not Detected (NotDetected) 02/18/22 16:35 Ur Phencyclidine Scrn Not Detected (NotDetected) 02/18/22 16:35 Ur Amphetamines Screen Not Detected (NotDetected) 02/18/22 16:35 U Methamphetamines Scrn Not Detected (NotDetected) 02/18/22 16:35 U Benzodiazepines Scrn Not Detected (NotDetected) 02/18/22 16:35 Parker Strip 0.5 mmol/L 02/24/22 06:24 Urine Cocaine Screen Not Detected (NotDetected) 02/18/22 16:35 U Marijuana (THC) Screen Detected (NotDetected) H 02/18/22 16:35 Coronavirus (PCR) Not Detected (Not Detectd) 02/18/22 19:31 Allergies Allergy/AdvReac Type Severity Reaction Status Date / Time No Known Allergies Allergy Verified 02/20/22 21:53 Patient Condition at Discharge: Stable Plan - Discharge Summary Discharge Rx Participant: No New Discharge Prescriptions: New Zolpidem [Ambien] 10 mg PO HS PRN 7 Days tab PRN Reason: Insomnia Nicotine 14Mg/24Hr Patch [Habitrol] 1 patch TRANSDERM DAILY 15 Days patch haloperidoL [Haldol] 10 mg PO HS 30 Days tab Parker Strip Carbonate 450 mg PO DAILY 30 Days cap Parker Strip Carbonate 600 mg PO HS 30 Days cap Continue Haloperidol Decanoate [Haldol D] 100 mg IM QMONTHLY #1 each metFORMIN HCL [Glucophage] 500 mg PO BID-W/MEALS 30 Days tab Discontinued traZODone HCL [Desyrel] 100 mg PO HS 15 Days tab haloperidoL [Haldol] 10 mg PO HS 5 Days #5 tab Nicotine 14Mg/24Hr Patch [Habitrol] 1 patch TRANSDERM DAILY 15 Days patch Discharge Medication List Haloperidol Decanoate [Haldol D] 100 mg IM QMONTHLY #1 each 02/11/22 [Rx] metFORMIN HCL [Glucophage] 500 mg PO BID-W/MEALS 30 Days tab 02/11/22 [Rx] Parker Strip Carbonate 450 mg PO DAILY 30 Days cap 02/25/22 [Rx] Parker Strip Carbonate 600 mg PO HS 30 Days cap 02/25/22 [Rx] Nicotine 14Mg/24Hr Patch [Habitrol] 1 patch TRANSDERM DAILY 15 Days patch 02/25/22 [Rx] Zolpidem [Ambien] 10 mg PO HS PRN 7 Days tab 02/25/22 [Rx] haloperidoL [Haldol] 10 mg PO HS 30 Days tab 02/25/22 [Rx] Follow up Appointment(s)/Referral(s): [facility] [Outside] - 02/26/22 1:30 pm (intake) Sydni Schuler MD [STAFF PHYSICIAN] - 1-2 days Patient Instructions/Handouts: Bipolar Disorder (DC), Schizoaffective Disorder (DC), Suicide Prevention (DC) Activity/Diet/Wound Care/Special Instructions: Avoid the use of street drugs and alcohol. Take all prescriptions as prescribed. When you are in need of refills on your medications, please contact your medical provider and/or outpatient psychiatrist to have this done. Please go to scheduled outpatient appointment for aftercare treatment. If symptoms return or become worse, call the crisis line at and/or go to the nearest emergency room for evaluation Discharge Disposition: HOME SELF-CARE
== END 2022-02-25 12:57 | disposition home or self-care (01) | DRG 885 ==
LOC: EC 13:55 → 3MHU 21:20
PROVIDERS: ADMIT Psychiatry & Neurology Psychiatry; ATTEND Psychiatry & Neurology Psychiatry
DX: F25.0 Schizoaffective disorder, bipolar type (principal); R45.851 Suicidal ideations; E11.9 Type 2 diabetes mellitus without complications; F12.90 Cannabis use, unspecified, uncomplicated; F17.210 Nicotine dependence, cigarettes, uncomplicated; F90.9 Attention-deficit hyperactivity disorder, unspecified type; G47.00 Insomnia, unspecified; R45.850 Homicidal ideations; Z79.84 Long term (current) use of oral hypoglycemic drugs; Z79.899 Other long term (current) drug therapy; Z91.14 Patient's other noncompliance with medication regimen; Z91.199 Patient's noncompliance with other medical treatment and regimen due to unspecified reason; Z20.822 Contact with and (suspected) exposure to COVID-19
CPT/HCPCS: 80053; 80061; 80178; 80306; 82075; 82248; 83036; 84439; 84443; 84480; 85025; 87635; 96372; 99285

== ENCOUNTER 2023-08-18 08:06 | Emergency (ER) | payer OTHER ==
[2023-08-18 08:10] VITALS: RESP 18
--- NOTE | 2023-08-18 08:52 | ED ---
Psych HPI - General Chief Complaint: Psychiatric Symptoms Stated Complaint: petition Time Seen by Provider: 08/18/23 08:10 Source: patient, police, RN notes reviewed Mode of arrival: ambulatory Limitations: no limitations - History of Present Illness Initial Comments: 22-year-old male presents emergency department with police for psychiatric evaluation. Patient was picked up on a court order petition for evaluation as being noncompliant. He denies being suicidal homicidal he states he saw the ACT team on Wednesday and received his medications he states he was in [place] last week. It was reported that he had not seen [facility] since end of June. He states he just saw them Wednesday and feels this may be miscommunication. - Related Data Home Medications Medication Instructions Recorded Confirmed Benztropine Mesylate [Cogentin] 0.5 mg PO BID 08/18/23 08/18/23 OXcarbazepine 300 mg PO BID 08/18/23 08/18/23 Paliperidone IM [Invega Sustenna] 156 mg IM DIRECTED 08/18/23 08/18/23 Paliperidone IM [Invega Sustenna] 234 mg IM DIRECTED 08/18/23 08/18/23 Paliperidone [Invega] 6 mg PO DAILY 08/18/23 08/18/23 busPIRone HCl [Buspar] 20 mg PO BID 08/18/23 08/18/23 Allergies Allergy/AdvReac Type Severity Reaction Status Date / Time No Known Allergies Allergy Verified 08/18/23 09:37 Review of Systems ROS Statement: Those systems with pertinent positive or pertinent negative responses have been documented in the HPI. ROS Other: All systems not noted in ROS Statement are negative. Past Medical History Past Medical History: Thyroid Disorder Additional Past Medical History / Comment(s): L thyroid nodule <1 CM, ? parathyroid problem History of Any Multi-Drug Resistant Organisms: None Reported Past Surgical History: No Surgical Hx Reported Past Anesthesia/Blood Transfusion Reactions: No Reported Reaction Additional Past Anesthesia/Blood Transfusion Reaction / Comment(s): Pt has never had surgery Past Psychological History: ADD/ADHD Smoking Status: Current every day smoker Past Alcohol Use History: None Reported Past Drug Use History: None Reported - Past Family History Mother Additional Family Medical History / Comment(s): ADHD Father Family Medical History: No Reported History Additional Family Medical History / Comment(s): Father is healthy grandfather Family Medical History: Diabetes Mellitus General Exam Limitations: no limitations General appearance: alert, in no apparent distress Head exam: Present: atraumatic, normocephalic, normal inspection Eye exam: Present: normal appearance, PERRL, EOMI. Absent: scleral icterus, conjunctival injection, periorbital swelling ENT exam: Present: normal exam, mucous membranes moist Neck exam: Present: normal inspection, full ROM. Absent: tenderness, meningismus, lymphadenopathy Respiratory exam: Present: normal lung sounds bilaterally. Absent: respiratory distress, wheezes, rales, rhonchi, stridor Cardiovascular Exam: Present: regular rate, normal rhythm, normal heart sounds. Absent: systolic murmur, diastolic murmur, rubs, gallop, clicks Neurological exam: Present: alert, oriented X3 Psychiatric exam: Present: anxious Course Vital Signs 08/18/23 08/18/23 08:07 10:35 Temperature 97.9 F 99.1 F Pulse Rate 74 75 Respiratory 18 18 Rate Blood Pressure 144/84 148/81 O2 Sat by Pulse 99 95 Oximetry Medical Decision Making - Medical Decision Making Was pt. sent in by a medical professional or institution ( PA, [employer], urgent care, hospital, or alf...) When possible be specific @ -No Did you speak to anyone other than the patient for history (EMS, parent, family, police, friend...)? What history was obtained from this source @ -Police brought in on court order petition Did you review nursing and triage notes (agree or disagree)? Why? @ -I reviewed and agree with nursing and triage notes Were old charts reviewed (outside hosp., previous admission, EMS record, old EKG, old radiological studies, urgent care reports/EKG's, alf records)? Report findings @ -No old charts were reviewed Differential Diagnosis (chest pain, altered mental status, abdominal pain women, abdominal pain men, vaginal bleeding, weakness, fever, dyspnea, syncope, headache, dizziness, GI bleed, back pain, seizure, CVA, palpatations, mental health, musculoskeletal)? @ -Differential Mental Health Depression, anxiety, bipolar, psychosis, schizophrenia, borderline personality, situational depression, adjustment disorder, behavioral disorder, brain tumor, malingering, substance abuse, encephalopathy, medication reaction, dementia, hypothyroidism, degenerative neurologic disorder, lupus.... This is not meant to be all-inclusive list EKG interpreted by me (3pts min.). @ -None X-rays interpreted by me (1pt min.). @ -None done CT interpreted by me (1pt min.). @ -None done U/S interpreted by me (1pt. min.). @ -None done What testing was considered but not performed or refused? (CT, X-rays, U/S, labs)? Why? @ -None What meds were considered but not given or refused? Why? @ -None Did you discuss the management of the patient with other professionals (professionals i.e. Dr., PA, [employer], lab, RT, psych nurse, licensed social worker, tool/die maker, teacher, enforcement safety officer, patient case manager)? Give summary @ -EPS evaluated the patient and discussed case with psychiatrist Was smoking cessation discussed for >3mins.? @ -No Was critical care preformed (if so, how long)? @ -No Were there social determinants of health that impacted care today? How? (Homelessness, low income, unemployed, alcoholism, drug addiction, transportation, low edu. Level, literacy, decrease access to med. care, detention, rehab)? @ -No Was there de-escalation of care discussed even if they declined (Discuss DNR or withdrawal of care, Hospice)? DNR status @ -No What co-morbidities impacted this encounter? (DM, HTN, Smoking, COPD, CAD, Cancer, CVA, ARF, Chemo, Hep., AIDS, mental health diagnosis, sleep apnea, morbid obesity)? @ -None Was patient admitted / discharged? Hospital course, mention meds given and route, prescriptions, significant lab abnormalities, going to OR and other pertinent info. @ -Discharged patient was eval by EPS and case discussed with psychiatrist. Patient is discharged to [facility]. Undiagnosed new problem with uncertain prognosis? @ -No Drug Therapy requiring intensive monitoring for toxicity (Heparin, Nitro, Insulin, Cardizem)? @ -No Were any procedures done? @ -No Diagnosis/symptom? @ -Depression, anxiety Acute, or Chronic, or Acute on Chronic? @ -Acute Uncomplicated (without systemic symptoms) or Complicated (systemic symptoms)? @ -Uncomplicated Side effects of treatment? @ -No Exacerbation, Progression, or Severe Exacerbation? @ -No Poses a threat to life or bodily function? How? (Chest pain, [place], [place], pneumonia, PE, COPD, DKA, ARF, appy, cholecystitis, CVA, Diverticulitis, Homicidal, Suicidal, threat to staff... and all critical care pts) @ -No - Lab Data Lab Results 08/18/23 Range/Units 08:54 Urine Opiates Screen Not Detected (NotDetected) Ur Oxycodone Screen Not Detected (NotDetected) Urine Methadone Screen Not Detected (NotDetected) Ur Barbiturates Screen Not Detected (NotDetected) U Tricyclic Antidepress Not Detected (NotDetected) Ur Phencyclidine Scrn Not Detected (NotDetected) Ur Amphetamines Screen Not Detected (NotDetected) U Methamphetamines Scrn Not Detected (NotDetected) U Benzodiazepines Scrn Not Detected (NotDetected) Urine Cocaine Screen Not Detected (NotDetected) U Marijuana (THC) Screen Detected H (NotDetected) Disposition Clinical Impression: Schizoaffective disorder, Evaluation by psychiatric service required Disposition: HOME SELF-CARE Condition: Stable Additional Instructions: Please return to the Emergency Department if symptoms worsen or any other concerns. Is patient prescribed a controlled substance at d/c from ED?: No Referrals: None,Stated [Primary Care Provider] - 1-2 days Time of Disposition: 10:40
[2023-08-18 09:21] LABS: Cocaine Screen,Urine Not Detected (NotDetected); Phencyclidine Screen,Urine Not Detected (NotDetected); Urn Cannabinoid Scrn Detected (NotDetected)
[2023-08-18 09:22] LABS: Amphetamine Screen,Urine Not Detected (NotDetected); Barbiturate Screen,Urine Not Detected (NotDetected); Benzodiazepines Screen,Urine Not Detected (NotDetected); Methadone Screen, Urine Not Detected (NotDetected); Opiate Screen,Urine Not Detected (NotDetected); Oxycodone Screen, Urine Not Detected (NotDetected); Tricyclic Antidepressant,Urine Not Detected (NotDetected)
[2023-08-18 10:36] VITALS: BP 148/81; PULSE 75; TEMP 99.1
== END 2023-08-18 10:49 | disposition home or self-care (01) ==
LOC: EC 08:06
DX: Z04.6 Encounter for general psychiatric examination, requested by authority (principal); F25.9 Schizoaffective disorder, unspecified; F32.A Depression, unspecified; F41.9 Anxiety disorder, unspecified; F17.200 Nicotine dependence, unspecified, uncomplicated; Z79.899 Other long term (current) drug therapy
CPT/HCPCS: 80306; 82075; 99284